=== PATIENT | male | born 1950 | race Caucasian/White ===

== ENCOUNTER → 2020-08-15 10:05 | Outpatient (CLI) | payer MEDICARE, SELFPAY ==
[2020-08-15 14:10] LABS: INR 5.51 (0.9-1.1); Prothrombin Time 52.4 seconds (9.4-11.8)
== END ==
PROVIDERS: Visit Provider Nurse Practitioner Family
DX: Z51.81 Encounter for therapeutic drug level monitoring (principal); Z79.01 Long term (current) use of anticoagulants
CPT/HCPCS: 85610

== ENCOUNTER → 2020-08-24 11:43 | Outpatient (CLI) | payer MEDICARE, SELFPAY ==
[2020-08-24 14:37] LABS: Prothrombin Time 50.5 seconds (9.4-11.8)
[2020-08-24 14:44] LABS: INR 5.29 (0.9-1.1)
== END ==
PROVIDERS: Visit Provider Nurse Practitioner Family
DX: Z51.81 Encounter for therapeutic drug level monitoring (principal); Z79.01 Long term (current) use of anticoagulants
CPT/HCPCS: 85610

== ENCOUNTER → 2020-08-31 11:39 | Outpatient (CLI) | payer MEDICARE, SELFPAY ==
[2020-08-31 17:18] LABS: INR 1.86 (0.9-1.1); Prothrombin Time 18.4 seconds (9.4-11.8)
== END ==
PROVIDERS: Visit Provider Nurse Practitioner Family
DX: Z51.81 Encounter for therapeutic drug level monitoring (principal); R79.1 Abnormal coagulation profile
CPT/HCPCS: 85610

== ENCOUNTER → 2020-09-05 11:45 | Outpatient (CLI) | payer MEDICARE, SELFPAY ==
[2020-09-05 17:26] LABS: INR 1.35 (0.9-1.1); Prothrombin Time 14.6 seconds (9.4-11.8)
== END ==
PROVIDERS: Visit Provider Nurse Practitioner Family
DX: Z51.81 Encounter for therapeutic drug level monitoring (principal); Z79.01 Long term (current) use of anticoagulants
CPT/HCPCS: 85610

== ENCOUNTER → 2020-09-11 11:48 | Outpatient (CLI) | payer MEDICARE, SELFPAY ==
[2020-09-11 14:35] LABS: INR 3.91 (0.9-1.1); Prothrombin Time 41.7 seconds (9.4-11.8)
== END ==
PROVIDERS: Visit Provider Nurse Practitioner Family
DX: R79.1 Abnormal coagulation profile (principal)
CPT/HCPCS: 85610

== ENCOUNTER → 2020-09-24 11:57 | Outpatient (CLI) | payer MEDICARE, SELFPAY ==
[2020-09-24 16:40] LABS: INR 3.63 (0.9-1.1); Prothrombin Time 38.9 seconds (9.4-11.8)
== END ==
PROVIDERS: Visit Provider Nurse Practitioner Family
DX: Z51.81 Encounter for therapeutic drug level monitoring (principal); Z79.01 Long term (current) use of anticoagulants
CPT/HCPCS: 85610

== ENCOUNTER → 2020-10-01 11:59 | Outpatient (CLI) | payer MEDICARE, SELFPAY ==
[2020-10-01 15:41] LABS: INR 4.14 (0.9-1.1)
== END ==
PROVIDERS: Visit Provider Nurse Practitioner Family
DX: Z51.81 Encounter for therapeutic drug level monitoring (principal); Z79.01 Long term (current) use of anticoagulants
CPT/HCPCS: 85610

== ENCOUNTER → 2020-10-02 11:01 | Outpatient (CLI) | payer MEDICARE, SELFPAY ==
[2020-10-02 14:44] LABS: Chloride 105 mmol/L (98-107); Potassium 5.7 mmoL/L (3.5-5.1); Sodium 137 mmol/L (136-145)
[2020-10-02 14:47] LABS: Anion Gap 11.7 mEq/L (5-15); Blood Urea Nitrogen 71 mg/dl (9-20); Carbon Dioxide 26 mmol/L (22.0-30.0); Estimated Glomerular Filt Rate 50 ml/min (>60); GFR (African American) 60 ML/MIN (>60)
[2020-10-02 14:48] LABS: Calcium 8.8 mg/dl (8.4-10.2); Glucose 162 mg/dl (74-100)
[2020-10-02 14:53] LABS: Basophils % 0.3 % (0.1-2.0); Eosinophils # 0.1 K/mm3 (0.0-0.4); Eosinophils % 1.2 % (0.1-12.0); Hematocrit 29.5 % (42.0-52.0); Hemoglobin 9.1 g/dL (14.1-18.0); Lymphocytes # 0.9 K/mm3 (0.7-4.5); Mean Corpuscular HGB Conc 30.8 g/dL (31.8-35.4); Mean Corpuscular Hemoglobin 28.6 pg (27.0-31.2); Mean Corpuscular Volume 92.8 fl (80-94); Mean Platelet Volume 9.5 fl (7.4-10.4); Monocytes # 0.6 K/mm3 (0.1-1.0); Neutrophils # 8.4 K/mm3 (1.8-7.8); Neutrophils % 83.4 % (37.0-80.0); Platelet Count 256 K/mm3 (142-424); Red Blood Count 3.18 M/mm3 (4.60-6.20); Red Cell Distribution Width 16.2 % (11.5-17.5)
[2020-10-02 14:57] LABS: NT Pro Brain Natriuretic Pep. 5720 pg/mL (0-125)
== END ==
PROVIDERS: Visit Provider Nurse Practitioner Family
DX: R06.02 Shortness of breath (principal); Z51.81 Encounter for therapeutic drug level monitoring; Z79.01 Long term (current) use of anticoagulants
CPT/HCPCS: 80048; 83880; 85025

== ENCOUNTER → 2020-10-08 14:02 | Outpatient (CLI) | payer MEDICARE, SELFPAY ==
[2020-10-08 14:37] LABS: Chloride 98 mmol/L (98-107); Potassium 4.2 mmoL/L (3.5-5.1); Sodium 140 mmol/L (136-145)
[2020-10-08 14:40] LABS: Anion Gap 10.2 mEq/L (5-15); Blood Urea Nitrogen 56 mg/dl (9-20); Calcium 8.9 mg/dl (8.4-10.2); Carbon Dioxide 36 mmol/L (22.0-30.0); Estimated Glomerular Filt Rate 60 ml/min (>60); GFR (African American) 72 ML/MIN (>60); Glucose 80 mg/dl (74-100)
[2020-10-08 14:50] LABS: NT Pro Brain Natriuretic Pep. 4540 pg/mL (0-125)
[2020-10-08 16:17] LABS: INR 1.17 (0.9-1.1); Prothrombin Time 13.6 seconds (10.1-12.5)
== END ==
PROVIDERS: Visit Provider Nurse Practitioner Family
DX: R79.1 Abnormal coagulation profile (principal); R06.00 Dyspnea, unspecified
CPT/HCPCS: 80048; 83880; 85610

== ENCOUNTER → 2020-10-15 11:36 | Outpatient (CLI) | payer MEDICARE, SELFPAY ==
[2020-10-15 15:41] LABS: Basophils # 0.1 K/mm3 (0-0.2); Basophils % 0.5 % (0.1-2.0); Eosinophils # 0.2 K/mm3 (0.0-0.4); Eosinophils % 1.4 % (0.1-12.0); Hemoglobin 9.5 g/dL (14.1-18.0); Lymphocytes # 1.5 K/mm3 (0.7-4.5); Lymphocytes % 12.8 % (10-50); Mean Corpuscular HGB Conc 31.5 g/dL (31.8-35.4); Mean Corpuscular Hemoglobin 28.8 pg (27.0-31.2); Mean Corpuscular Volume 91.5 fl (80-94); Mean Platelet Volume 9.3 fl (7.4-10.4); Monocytes # 0.8 K/mm3 (0.1-1.0); Monocytes % 6.9 % (1.7-9.3); Neutrophils # 9.3 K/mm3 (1.8-7.8); Neutrophils % 78.4 % (37.0-80.0); Platelet Count 217 K/mm3 (142-424); Red Blood Count 3.28 M/mm3 (4.60-6.20); Red Cell Distribution Width 15.9 % (11.5-17.5); White Blood Count 11.8 K/mm3 (4.8-10.8)
[2020-10-15 15:53] LABS: Chloride 99 mmol/L (98-107)
[2020-10-15 15:54] LABS: Potassium 4.3 mmoL/L (3.5-5.1); Sodium 137 mmol/L (136-145)
[2020-10-15 15:56] LABS: Blood Urea Nitrogen 53 mg/dl (9-20); Estimated Glomerular Filt Rate 50 ml/min (>60); GFR (African American) 60 ML/MIN (>60)
[2020-10-15 15:57] LABS: Anion Gap 10.3 mEq/L (5-15); Carbon Dioxide 32 mmol/L (22.0-30.0); Glucose 94 mg/dl (74-100)
[2020-10-15 16:05] LABS: NT Pro Brain Natriuretic Pep. 4740 pg/mL (0-125)
[2020-10-15 18:33] LABS: INR 1.82 (0.9-1.1); Prothrombin Time 20.5 seconds (10.1-12.5)
== END ==
PROVIDERS: Visit Provider Nurse Practitioner Family
DX: R79.1 Abnormal coagulation profile (principal); R79.0 Abnormal level of blood mineral; R06.09 Other forms of dyspnea; Z79.01 Long term (current) use of anticoagulants
CPT/HCPCS: 80048; 83880; 85025; 85610

== ENCOUNTER → 2020-10-22 11:48 | Outpatient (CLI) | payer MEDICARE, SELFPAY ==
[2020-10-22 16:03] LABS: INR 3.04 (0.9-1.1)
== END ==
PROVIDERS: Visit Provider Nurse Practitioner Family
DX: R79.1 Abnormal coagulation profile (principal)
CPT/HCPCS: 85610

== ENCOUNTER → 2020-11-05 11:43 | Outpatient (CLI) | payer MEDICARE, SELFPAY ==
[2020-11-05 14:46] LABS: Basophils # 0.1 K/mm3 (0-0.2); Basophils % 0.5 % (0.1-2.0); Eosinophils # 0.3 K/mm3 (0.0-0.4); Eosinophils % 2.8 % (0.1-12.0); Hematocrit 28.1 % (42.0-52.0); Hemoglobin 8.9 g/dL (14.1-18.0); Lymphocytes # 1.2 K/mm3 (0.7-4.5); Lymphocytes % 11.7 % (10-50); Mean Corpuscular HGB Conc 31.8 g/dL (31.8-35.4); Mean Corpuscular Hemoglobin 28.2 pg (27.0-31.2); Mean Corpuscular Volume 88.7 fl (80-94); Mean Platelet Volume 8.8 fl (7.4-10.4); Monocytes # 0.7 K/mm3 (0.1-1.0); Monocytes % 6.6 % (1.7-9.3); Neutrophils # 8.2 K/mm3 (1.8-7.8); Neutrophils % 78.4 % (37.0-80.0); Platelet Count 248 K/mm3 (142-424); Red Blood Count 3.17 M/mm3 (4.60-6.20); Red Cell Distribution Width 15.8 % (11.5-17.5); White Blood Count 10.5 K/mm3 (4.8-10.8)
[2020-11-05 14:52] LABS: Iron 37 ug/dL (49-181)
[2020-11-05 15:02] LABS: Total Iron Binding Capacity 290 ug/dL (261-462)
[2020-11-05 15:33] LABS: INR 1.92 (0.9-1.1); Prothrombin Time 21.6 seconds (10.1-12.5)
== END ==
PROVIDERS: Visit Provider Nurse Practitioner Family
DX: D50.9 Iron deficiency anemia, unspecified (principal)
CPT/HCPCS: 83540; 83550; 85025; 85610

== ENCOUNTER 2020-11-12 11:50 | Inpatient (IN) | payer MEDICARE, SELFPAY ==
[2020-11-12] VITALS (12 sets, daily range): BP systolic 90–138; BP diastolic 44–100; PULSE 69–79; RESP 17–20; TEMP 36.9; O2SAT 94–99; BMI 27.5
--- NOTE | 2020-11-12 12:04 | XR_ITS ---
PROCEDURE: XR ELBOW LT 2V CLINICAL INDICATION: FALL. C/O LEFT ELBOW PAIN COMPARISON: No exams were available for comparison FINDINGS: Two views are obtained showing no obvious fracture or dislocation. IV is present in the antecubital fossa. A separate calcific density is present at the medial epicondyle area consistent with old fracture or ununited ossification center. The lateral view there is a calcific density anterior to the distal humerus which may represent this ununited ossicle as the elbow is somewhat rotated. Other findings:None. IMPRESSION: No acute findings. Dictated by: Fredy Mccann MD 11/12/2020 13:42 Fredy Mccann MD in [facility] 11/12/2020 13:42
--- NOTE | 2020-11-12 12:04 | CT_ITS ---
PROCEDURE INFORMATION: Exam: CT Thoracic Spine Without Contrast Exam date and time: 11/12/2020 12:04 PM Age: 70 years old Clinical indication: Pain in thoracic spine; Additional info: Fall. C/O thoracic pain TECHNIQUE: Imaging protocol: Computed tomography images of the thoracic spine without contrast. Radiation optimization: All CT scans at this facility use at least one of these dose optimization techniques: automated exposure control; mA and/or kV adjustment per patient size (includes targeted exams where dose is matched to clinical indication); or iterative reconstruction. COMPARISON: No relevant prior studies available. FINDINGS: There are cardiac pacer leads. Vertebrae: Anatomic alignment. No acute fracture seen. Discs/Spinal canal/Neural foramina: [id number] thoracic degenerative disc disease. No severe central spinal canal stenosis. Other bones/joints: Prior median sternotomy. Soft tissues: Unremarkable. Lungs: The visualized lungs appear emphysematous. An area of nodular potentially parenchymal scarring in the apical right lower lobe. Left lower lobe subsegmental atelectasis. Pleural spaces: Trace right pleural effusion. Heart: There is cardiomegaly. There are coronary artery calcifications. IMPRESSION: No thoracic spine fracture seen.
[2020-11-12 12:18] LABS: Basophils # 0.1 K/mm3 (0-0.2); Basophils % 0.4 % (0.1-2.0); Eosinophils # 0.1 K/mm3 (0.0-0.4); Eosinophils % 0.8 % (0.1-12.0); Hematocrit 28.3 % (42.0-52.0); Hemoglobin 8.9 g/dL (14.1-18.0); Lymphocytes % 7.4 % (10-50); Mean Corpuscular HGB Conc 31.5 g/dL (31.8-35.4); Mean Corpuscular Hemoglobin 27.5 pg (27.0-31.2); Mean Corpuscular Volume 87.4 fl (80-94); Mean Platelet Volume 8.8 fl (7.4-10.4); Monocytes # 0.7 K/mm3 (0.1-1.0); Monocytes % 5.1 % (1.7-9.3); Neutrophils % 86.2 % (37.0-80.0); Platelet Count 266 K/mm3 (142-424); Red Blood Count 3.24 M/mm3 (4.60-6.20); Red Cell Distribution Width 15.5 % (11.5-17.5); White Blood Count 13.9 K/mm3 (4.8-10.8)
[2020-11-12 12:21] LABS: Alanine Aminotransferase 22 U/L (12-78); Albumin/Globulin Ratio 1.1 (1.1-1.8); Alkaline Phosphatase 77 U/L (38-126); Anion Gap 15.1 mEq/L (5-15); Aspartate Amino Transferase 27 U/L (17-59); Bilirubin,Total 0.6 mg/dl (0.2-1.3); Blood Urea Nitrogen 69 mg/dl (9-20); Calcium 9.3 mg/dl (8.4-10.2); Carbon Dioxide 27 mmol/L (22.0-30.0); Chloride 94 mmol/L (98-107); Creatinine Clearance Estimated 29 mL/min (50-200); Estimated Glomerular Filt Rate 23 ml/min (>60); GFR (African American) 28 ML/MIN (>60); Globulin 3.6 g/dL (1.3-3.2); Glucose 213 mg/dl (74-100); Potassium 5.1 mmoL/L (3.5-5.1); Sodium 131 mmol/L (136-145); Total Protein,Serum 7.6 g/dl (6.3-8.2)
--- NOTE | 2020-11-12 12:21 | PC.NURSE ---
PT GOING TO CT
--- NOTE | 2020-11-12 12:22 | PC.NURSE ---
pt to CT
[2020-11-12 12:25] LABS: MANUAL DIFFERENTIAL MANUAL DIFFERENTIAL (MANUAL DIFF)
[2020-11-12 12:56] LABS: Eosinophils % 1 % (0-3); Lymphocytes % 6 % (10-50); Monocytes % 4 % (2-9); Neutrophils % 89 % (42-76); Platelet Estimate Normal; RBC Morphology Normal; Total Cells Counted 100
--- NOTE | 2020-11-12 15:27 | HMH.EDFALL ---
ED Disposition Clinical Impression: UTI (urinary tract infection) Qualifiers: Urinary tract infection type: acute cystitis Hematuria presence: with hematuria Qualified Code(s): N30.01 - Acute cystitis with hematuria Disposition: Admitted As Inpatient Condition on Discharge: Fair Referrals: Provider,Referral, [Primary Care Provider] - Time of Disposition: 18:53 - Critical Care Critical Care Time: No Attestation: On 11/12/20, the high probability of a clinically significant, sudden or life threatening deterioration of the following system(s) required my full and direct attention, intervention and personal management. The time I documented below is in addition to time spent performing reported procedures but includes the following listed in this critical care notation. Medical Decision Making - Medical Records Medical records reviewed: Yes: I reviewed the patient's medical records. MR Comment: Patient is here with a complaint that he had fallen and also that he had mental status changes his is concerned he may have a urinary tract infection. We have done a CT of the T-spine and also left elbow x-ray and these were negative urine analysis did show urinary tract infection with 2+ leukocyte esterase 4+ bacteria and too numerous to count WBCs electrolytes showed renal failure with a BUN and creatinine of 69 and 2.7 and a GFR of 29 this compares with BUN of 53 and creatinine of 1.4 and GFR of 50 previously patient is on Lasix spoke to Dr. Delgado Koo and he advised that patient can be admitted we will obviously hold his Lasix and put him on IV Levaquin as well as fluids - [place] Inquiry Pt receiving controlled substance: No Vital Signs: 11/12/20 11:51 11/12/20 12:42 11/12/20 13:15 Temperature 98.4 F Temperature Source Oral Pulse Rate 70 70 Pulse Rate [Right] 79 Respiratory Rate 17 18 18 Blood Pressure 107/50 L 110/52 L Blood Pressure [Right Arm] 138/100 H Blood Pressure Mean 69 Blood Pressure Mean [Right Arm] 112 Blood Pressure Source Blood Pressure Position 02 Sat by Pulse Oximetry 97 94 L 95 Oxygen Delivery Method Room Air Oxygen Flow Rate (LPM) 11/12/20 13:32 11/12/20 14:01 11/12/20 14:31 Temperature Temperature Source Pulse Rate 70 70 69 Pulse Rate [Right] Respiratory Rate 18 18 18 Blood Pressure 113/59 L 121/61 117/56 L Blood Pressure [Right Arm] Blood Pressure Mean 77 81 76 Blood Pressure Mean [Right Arm] Blood Pressure Source Blood Pressure Position 02 Sat by Pulse Oximetry 96 98 98 Oxygen Delivery Method Oxygen Flow Rate (LPM) 11/12/20 15:01 11/12/20 15:31 11/12/20 16:01 Temperature Temperature Source Pulse Rate 70 69 70 Pulse Rate [Right] Respiratory Rate 20 Blood Pressure 131/57 L 108/84 L 126/61 Blood Pressure [Right Arm] Blood Pressure Mean Blood Pressure Mean [Right Arm] Blood Pressure Source Automatic Cuff Blood Pressure Position Sitting 02 Sat by Pulse Oximetry 98 97 99 Oxygen Delivery Method Nasal Cannula Nasal Cannula Nasal Cannula Oxygen Flow Rate (LPM) 3 3 3 11/12/20 16:32 11/12/20 17:00 Temperature Temperature Source Pulse Rate 75 72 Pulse Rate [Right] Respiratory Rate 20 Blood Pressure 90/71 L 111/66 Blood Pressure [Right Arm] Blood Pressure Mean Blood Pressure Mean [Right Arm] Blood Pressure Source Automatic Cuff Blood Pressure Position 02 Sat by Pulse Oximetry 98 98 Oxygen Delivery Method Nasal Cannula Nasal Cannula Oxygen Flow Rate (LPM) 3 3 - Lab Data Lab results reviewed: Yes: I reviewed the patient's lab results. Lab Results 11/12/20 11:58: WBC 13.9 H, RBC 3.24 L, Hgb 8.9 L, Hct 28.3 L, MCV 87.4, MCH 27.5, MCHC 31.5 L, RDW 15.5, Plt Count 266, MPV 8.8, Neut % (Auto) 86.2 H, Lymph % (Auto) 7.4 L, [place] % (Auto) 5.1, Eos % (Auto) 0.8, Baso % (Auto) 0.4, Neut # (Auto) 12.0 H, Lymph # (Auto) 1.0, [place] # (Auto) 0.7, Eos # (Auto) 0.1, Baso # (Auto) 0.1, Total Coun
[2020-11-12 16:23] LABS: Microscopic, Urine URINE MICROSCOPIC (MICROSCOPIC)
[2020-11-12 16:39] LABS: Appearance,Urine TURBID (Clear); Bilirubin,Urine Negative (Negative); Blood, Urine 1+ (Negative); Color,Urine YELLOW (Yellow); Glucose,Urine (UA) Negative (Negative); Ketones,Urine Negative (Negative); Leukocyte Esterase,Urine 2+ (Negative); Nitrate,Urine Negative (Negative); PH,Urine 5.5 (5.0-8.5); Protein,Urine 1+ (Negative); Urobilinogen,Urine 0.2 EU/dl (0.2)
[2020-11-12 16:52] LABS: WBC,Urine TNTC #/hpf (0-3)
[2020-11-12 16:53] LABS: Bacteria,Urine 4+ /lpf; Mucus,Urine 1+ /lpf
--- NOTE | 2020-11-12 16:58 | PC.NURSE ---
notified ER pt is wanting to speak with him regarding POC
--- NOTE | 2020-11-12 18:09 | PC.NURSE ---
mobile plant operators paging dr. lopez who is data acquisition technician for dr. paige
[2020-11-12 18:12] LABS: Adenovirus,PCR Not Detected (NotDetected); Bordetella Pertussis Not Detected (NotDetected); Chlamydophila Pneumoniae, PCR Not Detected (NotDetected); Coronavirus 19, PCR Not Detected (NotDetected); Coronavirus 229E Not Detected (NotDetected); Coronavirus NL63 Not Detected (NotDetected); Coronavirus OC43 Not Detected (NotDetected); Coronovirus HKU1,PCR Not Detected (NotDetected); Human Metapneumovirus Not Detected (NotDetected); Influenza A, PCR Not Detected (NotDetected); Influenza AH1, 2009 Not Detected (NotDetected); Influenza AH1, PCR Not Detected (NotDetected); Influenza AH3,PCR Not Detected (NotDetected); Influenza B, PCR Not Detected (NotDetected); Mycoplasma Pneumoniae, PCR Not Detected (NotDetected); Parainfluenza 1, PCR Not Detected (NotDetected); Parainfluenza 2, PCR Not Detected (NotDetected); Parainfluenza 3, PCR Not Detected (NotDetected); Parainfluenza 4, PCR Not Detected (NotDetected); Respiratory Syncytial Virus Not Detected (NotDetected); Rhinovirus/Enterovirus Not Detected (NotDetected)
--- NOTE | 2020-11-12 18:23 | PC.NURSE ---
pt is going to call when she has pt medication list with her. States she knows that pt is on warfarin and insulin( 3 times daily) unknown doses.
--- NOTE | 2020-11-12 18:43 | PC.NURSE ---
graphite mill operator paging dr. lopez again at this time
--- NOTE | 2020-11-12 18:43 | PC.NURSE ---
LIGIA DIEHL speaking with Dr. lopez
[2020-11-12 18:54] LABS: Lactic Acid 1.2 mmol/L (0.7-2.1)
[2020-11-12 18:57] LABS: INR 2.49 (0.9-1.1); Prothrombin Time 27.5 seconds (10.1-12.5)
--- NOTE | 2020-11-12 19:01 | PC.NURSE ---
notified warehouse general laborer of admission. states pt will probably be boarding in the ER asked house if we could get regular floor bed for pt to be moved over into for comfort
--- NOTE | 2020-11-12 19:26 | PC.NURSE ---
Pt has been admitted, there are no beds available and pt will be boarding in the ER for now.
[2020-11-13] VITALS: BP 104/56; PULSE 85; RESP 18; O2SAT 100
--- NOTE | 2020-11-13 04:45 | PC.NURSE ---
shift summary pt is alert but confused. pt was anxious frequently used call light stating hes scared and doesn't want to be alone. pt has a carlson in place with cloud dark yellow in color urine. pt denies nausea, vomiting, and diarrhea.
[2020-11-13 06:00] LABS: POC Glucose,Bedside 300 (70-110)
[2020-11-13 06:10] LABS: Basophils % 0.3 % (0.1-2.0); Eosinophils % 0.2 % (0.1-12.0); Hematocrit 26.1 % (42.0-52.0); Hemoglobin 8.1 g/dL (14.1-18.0); Lymphocytes # 0.7 K/mm3 (0.7-4.5); Mean Corpuscular HGB Conc 31.2 g/dL (31.8-35.4); Mean Corpuscular Hemoglobin 27.3 pg (27.0-31.2); Mean Corpuscular Volume 87.3 fl (80-94); Mean Platelet Volume 8.8 fl (7.4-10.4); Monocytes # 0.5 K/mm3 (0.1-1.0); Monocytes % 4.5 % (1.7-9.3); Neutrophils # 8.9 K/mm3 (1.8-7.8); Neutrophils % 87.9 % (37.0-80.0); Platelet Count 216 K/mm3 (142-424); Red Blood Count 2.99 M/mm3 (4.60-6.20); Red Cell Distribution Width 15.4 % (11.5-17.5); White Blood Count 10.1 K/mm3 (4.8-10.8)
[2020-11-13 06:12] LABS: MANUAL DIFFERENTIAL MANUAL DIFFERENTIAL (MANUAL DIFF)
[2020-11-13 06:21] LABS: Alanine Aminotransferase 16 U/L (12-78); Albumin Level 3.4 g/dl (3.5-5.0); Albumin/Globulin Ratio 1.1 (1.1-1.8); Alkaline Phosphatase 64 U/L (38-126); Anion Gap 15.1 mEq/L (5-15); Aspartate Amino Transferase 21 U/L (17-59); Bilirubin,Total 0.5 mg/dl (0.2-1.3); Blood Urea Nitrogen 72 mg/dl (9-20); Calcium 8.9 mg/dl (8.4-10.2); Carbon Dioxide 27 mmol/L (22.0-30.0); Chloride 94 mmol/L (98-107); Creatinine Clearance Estimated 34 mL/min (50-200); Estimated Glomerular Filt Rate 28 ml/min (>60); GFR (African American) 34 ML/MIN (>60); Globulin 3.2 g/dL (1.3-3.2); Glucose 262 mg/dl (74-100); Potassium 5.1 mmoL/L (3.5-5.1); Sodium 131 mmol/L (136-145); Total Protein,Serum 6.6 g/dl (6.3-8.2)
--- NOTE | 2020-11-13 06:48 | HMH.HP ---
*Admission Date: 11/12/20 *Chief complaint: Weakness and increased confusion *History of present illness: 70-year-old male with dementia presented to the emergency department with his over increased confusion and weakness at home. The patient reports this morning he had been following more frequently. Full medical history was not obtained as apparently the patient's left the ER soon after bringing him in and has not returned. Patient reports a history of congestive heart failure, COPD, diabetes. Patient was found to have acute kidney injury and urinary tract infection and was admitted for IV fluids and IV antibiotics. Overnight patient was quite restless and nursing staff had to give the patient something to calm him. [facility] History I have reviewed the patient's past medical history: Yes Medical History: Reports:: Congestive Heart Failure, Chronic Obstructive Pulmonary Disease (COPD), Dementia, Diabetes Mellitus Type 2 *Have you ever received a pneumonia vaccine?: No *Have you received a flu vaccine this season?: No Other Medical History: Reports: Anemia Other Surgeries: Yes: Other - *Social History Last grade of school completed: High school graduate Smoking Status: Former smoker Alcohol Intake: never Substance Use Type: denies use *Occupational Status:: retired, other *Travel in the last 8 weeks: None Family Hx:: Non-contributory Review of Systems - Constitutional Reports anorexia - Eyes Denies blind spots - ENT Denies abnormal hearing - *Cardiovascular Denies chest pain - *Respiratory Denies change in phlegm color, Denies chest congestion - *Gastrointestinal Denies abdominal pain, Denies bloating - *Genitourinary Denies difficulty urinating - *Musculoskeletal Reports joint pain, Reports back pain - Integumentary/Breasts Denies hair loss (Labs) Meds Home Medications Medication Instructions Recorded Confirmed Type Alfuzosin HCl [Alfuzosin HCl ER] 10 mg PO DAILY 11/12/20 11/12/20 History Ascorbic Acid 500 mg PO DAILY 11/12/20 11/12/20 History Aspirin [Aspirin 81mg chewable 81 mg PO DAILY 11/12/20 11/12/20 History tab] Budesonide/Formoterol Fumarate 2 puffs IH BID 11/12/20 11/12/20 History [Budesonide-Formoterol 160-4.5] Escitalopram Oxalate 5 mg PO DAILY 11/12/20 11/12/20 History Famotidine [Pepcid] 20 mg PO DAILY 11/12/20 11/12/20 History Ferrous Sulfate 325 mg PO BID 11/12/20 11/12/20 History Furosemide [Furosemide 40MG tAB*] 40 mg PO DAILY 11/12/20 11/12/20 History Insulin Aspart [Novolog Flexpen] 0 unit SQ TID 11/12/20 11/12/20 History Insulin Glargine,Hum.rec.anlog 44 units SQ DAILY 11/12/20 11/12/20 History [Lantus Solostar 100 Units/mL 3mL flexpen] Magnesium 250 mg PO DAILY 11/12/20 11/12/20 History Metoprolol Succinate [Metoprolol 100 mg PO DAILY 11/12/20 11/12/20 History Succinate 200mg Tablet*] Pravastatin Sodium [Pravachol 40mg 40 mg PO HS 11/12/20 11/12/20 History Tablet] Tiotropium [place] [Spiriva 2 cap IH DAILY 11/12/20 11/12/20 History 18mcg/puff inhaler] Warfarin Sodium 3 mg PO DAILY 11/12/20 11/12/20 History lisinopriL [Lisinopril] 40 mg PO DAILY 11/12/20 11/12/20 History metOLazone [Metolazone 5mg Tab] 5 mg PO DAILY 11/12/20 11/12/20 History Allergies Allergy/AdvReac Type Severity Reaction Status Date / Time No Known Allergies Allergy Unverified 06/30/17 14:56 Exam Vital signs and Labs for Last 24 Hours: Temp Pulse Resp BP Pulse Ox 98.4 F 85 18 104/56 L 100 11/12/20 22:28 11/13/20 00:00 11/13/20 00:00 11/13/20 00:00 11/13/20 00:00 Laboratory Results - last 24 hr 11/12/20 11:58: WBC 13.9 H, RBC 3.24 L, Hgb 8.9 L, Hct 28.3 L, MCV 87.4, MCH 27.5, MCHC 31.5 L, RDW 15.5, Plt Count 266, MPV 8.8, Neut % (Auto) 86.2 H, Lymph % (Auto) 7.4 L, [place] % (Auto) 5.1, Eos % (Auto) 0.8, Baso % (Auto) 0.4, Neut # (Auto) 12.0 H, Lymph # (Auto) 1.0, [place] # (Auto) 0.7, Eos # (Auto) 0.1, Baso # (Auto) 0.1, Total Counted 100, N
--- NOTE | 2020-11-13 07:39 | P.CONPHA_ITS ---
[facility] VTE Monitoring - Patient Demographics Admission date: 11/12/20 Report Date: 11/13/20 Time: 07:39 Allergies/Adverse Reactions: Patient Allergies No Known Allergies Allergy (Unverified 06/30/17 14:56) Height: 1.73 m Weight: 82.024 kg Patient Problems: Current Active Problems UTI (urinary tract infection) (Acute) Acute kidney injury (nontraumatic) (Acute) Diabetes mellitus type 2 in nonobese (Acute) Chronic obstructive pulmonary disease, unspecified (Acute) Congestive heart failure, unspecified (Acute) Dementia, unspecified, with behavioral disturbance (Acute) Anemia of chronic disease (Acute) - VTE Risk Labs: VTE Related Lab Results Hgb 8.1 g/dL (14.1-18.0) L 11/13/20 05:25 Hct 26.1 % (42.0-52.0) L 11/13/20 05:25 Plt Count 216 K/mm3 (142-424) 11/13/20 05:25 PT 27.5 seconds (10.1-12.5) H 11/12/20 11:58 INR 2.49 (0.9-1.1) H 11/12/20 11:58 BUN 72 mg/dl (9-20) H 11/13/20 05:25 Creatinine 2.30 mg/dl (0.66-1.25) H 11/13/20 05:25 Estimated Creat Clear 34 mL/min (50-200) 11/13/20 05:25 - Prophylaxis VTE Prophylaxis Ordered?: Yes Types of VTE Prophylaxis: TEDS Knee High, Pharmacological Location of Applied Device: Bilateral Lower Extremeties Pharmacologic Type: Warfarin
[2020-11-13 08:00] VITALS: BP 134/79; PULSE 103; RESP 16; TEMP 36.4; O2SAT 98
[2020-11-13 09:16] LABS: Lymphocytes % 7 % (10-50); Monocytes % 2 % (2-9); Neutrophils % 90 % (42-76); RBC Morphology Normal; Total Cells Counted 100
[2020-11-13 09:17] LABS: Platelet Estimate Normal
[2020-11-13 10:07] LABS: POC Glucose,Bedside 304 (70-110)
--- NOTE | 2020-11-13 10:18 | HMH.PTEV ---
Physical Therapy Evaluation Rehab PT IP Evaluation Start: 11/13/20 06:46 Freq: ONCE Status: Active Protocol: Document 11/13/20 10:12 JUAN C (Rec: 11/13/20 10:18 JUAN C [id number]) Subjective/History History History 70-year-old male with dementia presented to the emergency department with his over increased confusion and weakness at home. The patient reports this morning he had been following more frequently . Full medical history was not obtained as apparently the patient's left the ER soon after bringing him in and has not returned. Patient reports a history of congestive heart failure, COPD , diabetes. Patient was found to have acute kidney injury and urinary tract infection and was admitted for IV fluids and IV antibiotics. Overnight patient was quite restless and nursing staff had to give the patient something to calm him. Taken from H&P Subjective Subjective pt c/o his back itching - pt A&O x 3 Rehab PT IP Eval Objective Appearance Patient Behavior Cooperative Patient Orientation Person,Place,Time Difficulty following instructions none Speech Pattern Clear,Appropriate Ambulation Patient Able to Ambulate Yes Ambulation Observation IP General Gait Pattern Observation Ataxic Gait,Shuffling Step Ambulation Distance (feet) 2 Ambulation Assistive Device None Ambulation Ability Minimal x 2 (25% assist) Balance Ability to Arise Able, uses arms to help Sitting Balance Steady, safe Standing Balance Steady, wide stance Dynamic Sitting Balance Ability Fair Dynamic Standing Balance Ability Poor Transfers Bed Transfer Ability Moderate x 2 (50% assist) Sit to Stand Bed Transfer Ability Contact Guard/Hand Hold, Minimal x 2 (25% assist) ROM LUE PT ROM Status ABN MMT LUE PT MMT ABN Abnormal MMT Grade 3-/5 Rehab PT IP prob,goals,plan Problems Date of Evaluation: 11/13/20 PT IP Problems Bed Mobility,Transfers,Gait,
--- NOTE | 2020-11-13 10:31 | PC.NURSE ---
pt is A&Ox4 this morning. at bedside and states pt is not diagnosed with dementia but get very confused and yells at night, but is back to being oriented during the day.
--- NOTE | 2020-11-13 10:58 | HMH.OTEV ---
OT Inpatient Evaluation Rehab OT IP Evaluation Start: 11/13/20 09:45 Freq: ONCE Status: Complete Protocol: Document 11/13/20 10:52 [facility] (Rec: 11/13/20 10:57 [facility] [id number]) Rehab OT IP Assessment Subjective History Pt oriented x 2. Pt agreeable to engage in therapy evaluation. Pt was admitted via ED on 11/12/20 due to mental status change and fall at home. Pt has a past medical history of CHF, COPD, Dementia , and DM type 2. Pt's present during therapy evaluation. According to both patient and , pt requires assistance with ADLS. He requires help with dressing and bathing. He is able to eat independently after set up of food. Pt is dependent upon to complete all IADL 's at home such as cleaning, cooking, laundry, etc. reports he is able to transfer minimal distances with rolling walker when he is not weak/sick. Pt was being seen by home health and completed therapy ~2 weeks ago. According to he has progressively become weaker. Subjective I feel so bad. Objective Patient Orientation Person,Birthday Upper Extremity Gross ROM WFL Shoulder ROM Limitations Muscle Weakness Elbow ROM Limitations Muscle Weakness Wrist Limitations of Range of Motion Muscle Weakness Bed Mobility bed mobility-scooting,bed mobility - supine/sit,bed mobility - rolling Assist Level Minimal x 1 (25% assist) Transfer Training Sit/Stand Transfer Assist Level Minimal x 2 (25% assist) Rehab OT IP prob,goals,plan Problems Date of Evaluation: 11/13/20 OT IP Problems Bed Mobility,Transfers,Gait, Balance,Self care,Safety Rehab Potential Rehab Potential Good Equipment Needs Assistive Devices Rolling / Wheeled Walker Plan OT intervention Plan Bed Mobility,Transfers,Gait, Balance,Self care,Safety,
[2020-11-13 12:22] LABS: POC Glucose,Bedside 276 (70-110)
[2020-11-13 13:00] VITALS: BP 109/57; PULSE 71; RESP 16; TEMP 36.4; O2SAT 97
[2020-11-13 13:30] VITALS: BP 109/57; PULSE 71; RESP 16; TEMP 36.4; O2SAT 97
--- NOTE | 2020-11-13 14:27 | SW/DCPLANNER ---
RECEIVED REFERRAL FOR THIS PATIENT FOR DISCHARGE PLANNING: I SPOKE WITH AND PATIENT, PATIENT WAS SLEEPY AND ANSWERED MOST QUESTIONS, SHE REQUESTED INFORMATION TO BE SENT TO [facility] SINCE THEY RESIDE IN [place]... I DID MAKE CONTACT AND THEY DO HAVE BEDS AVAILABLE, HIS INSURANCE REQUIRES AUTHORIZATION AND WILL BE SENT IN FOR REVIEW.. IF ACCEPTED HE MAY BE READY FOR DISPOSITION SOON TMRW OR THURS.. WILL NOTIFY IF APPROVED...
--- NOTE | 2020-11-13 15:33 | HMH.PHAINT ---
MEDICATION RECONCILIATION COMPLETED ON PATIENT USING LIST FROM [facility] [place], AND [facility]. -BRYCE COLLADOD
[2020-11-13 16:59] LABS: POC Glucose,Bedside 174 (70-110)
--- NOTE | 2020-11-13 17:21 | PC.NURSE ---
NOTIFIED ABOUT PT WHEEZING NOW AND HE ORDERED TO STOP IVF. ORDER FAXED TO PHARMACY.
[2020-11-13 20:00] VITALS: BP 100/53; PULSE 70; RESP 18; TEMP 36.9; O2SAT 99
[2020-11-13 20:26] LABS: POC Glucose,Bedside 95 (70-110)
[2020-11-14 04:00] VITALS: BP 118/63; PULSE 70; RESP 20; TEMP 36.4; O2SAT 99
--- NOTE | 2020-11-14 04:26 | PC.NURSE ---
pt has yelled out most of night. slept intermittently. 3LNC. pt has been very confused and restless. iv patent. vss. call light in reach. bed alarm is set. will continue to monitor
[2020-11-14 06:30] LABS: POC Glucose,Bedside 82 (70-110)
--- NOTE | 2020-11-14 07:16 | HMH.ACPN2 ---
Internal Medicine - PN: Subj *Date: 11/14/20 *Time: 07:16 Interval history: Patient required reinsertion of Mullen catheter this morning with 450 mL of urine output. Patient reports he does not feel well but cannot be more specific. He he admits he does not like the evenings and nighttime as he is uncomfortable and anxious in the hospital. Patient is continued to yell out most of the night with no specific complaints. Nursing staff repeatedly tries to reassure the patient that he is safe. He denies pain or shortness of breath Exam Vital signs and Labs for Last 24 Hours: Temp Pulse Resp BP Pulse Ox 97.6 F 70 20 118/63 99 11/14/20 04:00 11/14/20 04:00 11/14/20 04:00 11/14/20 04:00 11/14/20 04:00 Laboratory Results - last 24 hr 11/12/20 16:15: Urine Color Yellow, Urine Appearance Turbid, Urine pH 5.5, Ur Specific [place] 1.020, Urine Protein 1+, Urine Glucose (UA) Negative, Urine Ketones Negative, Urine Blood 1+, Urine Nitrate Negative, Urine Bilirubin Negative, Urine Urobilinogen 0.2, Ur Leukocyte Esterase 2+ A, Urine RBC 10-20, Urine WBC Tntc, Ur Squamous Epith Cells 5-10, Urine Bacteria 4+, Urine Mucus 1+ 11/13/20 05:25: Total Counted 100, Neutrophils % (Manual) 90 H, Band Neutrophils % 1.0, Lymphocytes % (Manual) 7 L, Monocytes % (Manual) 2, Platelet Estimate Normal, RBC Morphology Normal 11/13/20 09:43: POC Glucose 304 H* 11/13/20 12:11: POC Glucose 276 H 11/13/20 16:51: POC Glucose 174 H 11/13/20 20:12: POC Glucose 95 11/14/20 06:00: POC Glucose 82 I & O for Last 24 hours: Intake & Output 11/11/20 11/12/20 11/13/20 11/14/20 11:59 11:59 11:59 11:59 Intake Total 2680 / 2680 1560 / 1560 Output Total 600 / 600 650 / 650 Balance 2080 / 2080 910 / 910 Weight 180 lb 13.313 oz 198 lb 5 oz Microbiology Reports for the Last 24 Hours: Microbiology 11/12/20 18:24 Blood Blood Culture - Preliminary 11/12/20 11:58 Blood Blood Culture - Preliminary 11/12/20 16:15 Urine,Catheterized Urine Culture - Preliminary Gram Negative Rods - Constitutional no acute distress - *Routine Respiratory Exam Present: crackles - *Routine Cardiovascular Exam Present: RRR - *Routine Abdominal Exam Present: soft, normoactive bowel sounds. Absent: tenderness - *Routine Extremities Exam Absent: cyanosis, clubbing, edema Assessment and Plan (1) Acute kidney injury (nontraumatic) Status: Acute Category: Medical Code(s): N17.9 - Acute kidney failure, unspecified (2) Diabetes mellitus type 2 in nonobese Status: Acute Category: Medical Code(s): E11.9 - Type 2 diabetes mellitus without complications (3) Chronic obstructive pulmonary disease, unspecified Status: Acute Category: Medical Code(s): J44.9 - Chronic obstructive pulmonary disease, unspecified (4) Congestive heart failure, unspecified Status: Acute Category: Medical Code(s): I50.9 - Heart failure, unspecified (5) Dementia, unspecified, with behavioral disturbance Status: Acute Category: Medical Code(s): F03.91 - Unspecified dementia with behavioral disturbance (6) UTI (urinary tract infection) Status: Acute Qualifiers: Urinary tract infection type: acute cystitis Hematuria presence: with hematuria Qualified Code(s): N30.01 - Acute cystitis with hematuria Category: Medical Code(s): N39.0 - Urinary tract infection, site not specified (7) Anemia of chronic disease Status: Acute Category: Medical Code(s): D63.8 - Anemia in other chronic diseases classified elsewhere (8) Gram-negative bacteremia Status: Acute Category: Medical Code(s): R78.81 - Bacteremia - Assessment and plan all Dx Assessment and Plan for all problems:: 1. Continue IV Levaquin dosed every 48 hours for patient's gram-negative urinary tract infection and gram-negative bacteremia. Antibiotic adjustments may be made based on culture results. Patient will need 7 days total
[2020-11-14 07:42] LABS: Basophils % 0.3 % (0.1-2.0); Eosinophils # 0.1 K/mm3 (0.0-0.4); Eosinophils % 0.8 % (0.1-12.0); Hematocrit 27.6 % (42.0-52.0); Hemoglobin 8.8 g/dL (14.1-18.0); Lymphocytes # 1.2 K/mm3 (0.7-4.5); Lymphocytes % 10.9 % (10-50); Mean Corpuscular HGB Conc 31.9 g/dL (31.8-35.4); Mean Corpuscular Hemoglobin 27.6 pg (27.0-31.2); Mean Corpuscular Volume 86.6 fl (80-94); Mean Platelet Volume 9.3 fl (7.4-10.4); Monocytes # 0.7 K/mm3 (0.1-1.0); Monocytes % 6.7 % (1.7-9.3); Neutrophils # 8.9 K/mm3 (1.8-7.8); Neutrophils % 81.3 % (37.0-80.0); Platelet Count 230 K/mm3 (142-424); Red Blood Count 3.18 M/mm3 (4.60-6.20); Red Cell Distribution Width 15.5 % (11.5-17.5)
[2020-11-14 07:47] LABS: Alanine Aminotransferase 21 U/L (12-78); Albumin Level 3.8 g/dl (3.5-5.0); Albumin/Globulin Ratio 1.1 (1.1-1.8); Alkaline Phosphatase 72 U/L (38-126); Anion Gap 13.4 mEq/L (5-15); Aspartate Amino Transferase 32 U/L (17-59); Bilirubin,Total 0.6 mg/dl (0.2-1.3); Calcium 9.5 mg/dl (8.4-10.2); Carbon Dioxide 27 mmol/L (22.0-30.0); Chloride 97 mmol/L (98-107); Creatinine Clearance Estimated 41 mL/min (50-200); Estimated Glomerular Filt Rate 31 ml/min (>60); GFR (African American) 38 ML/MIN (>60); Globulin 3.4 g/dL (1.3-3.2); Glucose 62 mg/dl (74-100); Potassium 4.4 mmoL/L (3.5-5.1); Sodium 133 mmol/L (136-145); Total Protein,Serum 7.2 g/dl (6.3-8.2)
[2020-11-14 08:00] VITALS: BP 122/68; PULSE 74; RESP 20; TEMP 36.8; O2SAT 99
[2020-11-14 08:09] LABS: Blood Urea Nitrogen 78 mg/dl (9-20)
[2020-11-14 08:15] LABS: POC Glucose,Bedside 115 (70-110)
[2020-11-14 08:24] LABS: Prothrombin Time 28.7 seconds (10.1-12.5)
[2020-11-14 08:25] LABS: INR 2.61 (0.9-1.1)
[2020-11-14 11:45] LABS: POC Glucose,Bedside 89 (70-110)
[2020-11-14 16:00] VITALS: BP 118/74; PULSE 73; RESP 18; TEMP 36.8; O2SAT 100
[2020-11-14 17:58] LABS: POC Glucose,Bedside 121 (70-110)
--- NOTE | 2020-11-14 18:05 | PC.NURSE ---
Pt was extremely anxious and kept yelling out for the first couple of hours this shift. When pt's arrived, pt did calm down and then slept most of the shift. Pt did require assistance from his to eat his meals this shift. Mullen cath remains in place w/ straw colored and purulent urine draining per gravity. Pt has required no insulin this shift, long-acting insulin was held this AM d/t low FSBS this morning. Lunchtime FSBS was 89. No other acute changes or complaints at this time.
[2020-11-14 20:00] VITALS: BP 127/70; PULSE 71; RESP 19; TEMP 36.7; O2SAT 100
[2020-11-14 20:08] VITALS: O2SAT 100
--- NOTE | 2020-11-14 20:09 | PC.NURSE ---
RA SATS 82%. RETURN PT TO 3L N/C
[2020-11-14 21:00] VITALS: O2SAT 100
[2020-11-14 21:41] LABS: POC Glucose,Bedside 116 (70-110)
--- NOTE | 2020-11-14 22:45 | PC.NURSE ---
He is able to answer all questions correctly but continues to yell out despite being shown how to use the call light. He can press the buttons better on the call light with his left hand. He is aggravated that staff cannot find [place] on the television. He requested to call his . Staff helped him to call his with his cell phone. He was begging her to come visit him and reported that staff was not helping him. He denies pain. Glucose was 116 at bedtime. F/c is patent with yellow, clear urine. He continues on 3LPM n/c. Safety is set.
[2020-11-15 03:37] VITALS: BP 145/71; PULSE 70; RESP 18; TEMP 37; O2SAT 100
[2020-11-15 04:44] VITALS: BMI 29.8
[2020-11-15 05:12] LABS: POC Glucose,Bedside 102 (70-110)
[2020-11-15 08:00] VITALS: BP 125/66; PULSE 70; RESP 18; TEMP 36.6; O2SAT 99
[2020-11-15 08:10] VITALS: PULSE 73; O2SAT 99
--- NOTE | 2020-11-15 08:16 | HMH.ACPN2 ---
Internal Medicine - PN: Subj *Date: 11/15/20 *Time: 08:16 Interval history: Patient has been stable over the last 24 hours. He continues to yell out for staff with minor complaints such as what is on the television. Initially during morning interview patient denies any pain or shortness of breath but then later states he is miserable . His misery this stems from the belief that no family has been to visit him and he experiences some upset stomach. When further questioned regarding his upset stomach . Patient cannot describe significant nausea, abdominal pain or change in bowel habits. Exam Vital signs and Labs for Last 24 Hours: Temp Pulse Resp BP Pulse Ox 97.9 F 70 18 125/66 99 11/15/20 08:00 11/15/20 08:00 11/15/20 08:00 11/15/20 08:00 11/15/20 08:00 Laboratory Results - last 24 hr 11/14/20 07:26: PT 28.7 H, INR 2.61 H 11/14/20 11:35: POC Glucose 89 11/14/20 17:08: POC Glucose 121 H 11/14/20 20:27: POC Glucose 116 H 11/15/20 03:47: POC Glucose 102 I & O for Last 24 hours: Intake & Output 11/12/20 11/13/20 11/14/20 11/15/20 11:59 11:59 11:59 11:59 Intake Total 2680 / 2680 2040 / 2040 610 / 610 Output Total 600 / 600 650 / 650 1100 / 1100 Balance 2080 / 2080 1390 / 1390 -490 / -490 Weight 180 lb 13.313 oz 198 lb 6.656 oz 197 lb 1 oz Microbiology Reports for the Last 24 Hours: Microbiology 11/12/20 18:24 Blood Blood Culture - Preliminary Gram Negative Rods 11/12/20 11:58 Blood Blood Culture - Preliminary Gram Negative Rods 11/12/20 16:15 Urine,Catheterized Urine Culture - Final Escherichia coli Narrative: Patient looks comfortable. He is rather emotionally labile and on the verge of tears at times. Lungs remain clear. Heart has a regular rate and rhythm. Abdomen is soft and nontender. Assessment and Plan (1) E coli bacteremia Status: Suspected Category: Medical Code(s): R78.81 - Bacteremia; B96.20 - Unspecified Escherichia coli [E. coli] as the cause of diseases classified elsewhere (2) Acute kidney injury (nontraumatic) Status: Acute Category: Medical Code(s): N17.9 - Acute kidney failure, unspecified (3) Diabetes mellitus type 2 in nonobese Status: Acute Category: Medical Code(s): E11.9 - Type 2 diabetes mellitus without complications (4) Chronic obstructive pulmonary disease, unspecified Status: Acute Category: Medical Code(s): J44.9 - Chronic obstructive pulmonary disease, unspecified (5) Congestive heart failure, unspecified Status: Acute Category: Medical Code(s): I50.9 - Heart failure, unspecified (6) Dementia, unspecified, with behavioral disturbance Status: Acute Category: Medical Code(s): F03.91 - Unspecified dementia with behavioral disturbance (7) UTI (urinary tract infection) Status: Acute Qualifiers: Urinary tract infection type: acute cystitis Hematuria presence: with hematuria Qualified Code(s): N30.01 - Acute cystitis with hematuria Category: Medical Code(s): N39.0 - Urinary tract infection, site not specified (8) Anemia of chronic disease Status: Acute Category: Medical Code(s): D63.8 - Anemia in other chronic diseases classified elsewhere (9) E. coli UTI Status: Acute Category: Medical Code(s): N39.0 - Urinary tract infection, site not specified; B96.20 - Unspecified Escherichia coli [E. coli] as the cause of diseases classified elsewhere (10) Pseudobulbar affect Status: Acute Category: Medical Code(s): F48.2 - Pseudobulbar affect - Assessment and plan all Dx Assessment and Plan for all problems:: 1. Patient will be started on Rocephin 2 g IV daily due to his gram-negative bacteremia in anticipation that this will be E. coli with same sensitivities of his urinary tract infection. PICC line will be ordered. 2. Continue to hold diuretics while awaiting improvement in r
--- NOTE | 2020-11-15 08:20 | HMH.DCSUM ---
General - General Admission date:: 11/12/20 Discharge date: 11/15/20 HPI HPI: 70-year-old male with dementia presented to the emergency department with his over increased confusion and weakness at home. The patient reports this morning he had been following more frequently. Full medical history was not obtained as apparently the patient's left the ER soon after bringing him in and has not returned. Patient reports a history of congestive heart failure, COPD, diabetes. Patient was found to have acute kidney injury and urinary tract infection and was admitted for IV fluids and IV antibiotics. Overnight patient was quite restless and nursing staff had to give the patient something to calm him. Hospital Course Hospital Course: Patient was admitted for altered mental status and urinary tract infection. Patient was initially started on Levaquin for his UTI. After 48 hours of hospitalization patient's urine culture grew E. coli that was resistant to dee quinolones and patient was transitioned to Rocephin. Blood cultures were also growing gram-negative rods and his Rocephin was increased to 2 g IV daily. Patient will need at least 7 days of IV Rocephin 2 g daily for treatment of gram-negative (E. coli) bacteremia and UTI. Patient remained afebrile during the entirety of his hospitalization. Patient's infection did exacerbate his dementia. Patient displayed poor memory during hospitalization often forgetting simple instructions given to him by nurses and forgetting that family had visited him throughout the day. Nighttime's were the most difficult for the patient increased disruptive behavior such as yelling from his room despite teaching on how to use his call button. Patient did admit he was very uncomfortable at nights and became anxious. confirmed this behavior occurs at home as well. Patient be started on a low-dose of Seroquel in the evenings. Patient displayed emotional lability as well raising question pseudobulbar affect and patient will be started on Nuedexta at discharge Patient had acute kidney injury identified on admission. Patient is on multiple diuretics in addition to ROMERO inhibitor's due to his congestive heart failure. He was initially rehydrated but when should he showed signs of fluid overload IV fluids were discontinued. Creatinine gradually came down. At discharge patient's ROMERO inhibitor was restarted Patient's medical history was significant for congestive heart failure, COPD and diabetes mellitus, and anemia of chronic disease. These conditions remained stable during hospitalization Objective Vital signs: Temp Pulse Resp BP Pulse Ox 97.9 F 70 18 125/66 99 11/15/20 08:00 11/15/20 08:00 11/15/20 08:00 11/15/20 08:00 11/15/20 08:00 no acute distress - *Routine Respiratory Exam Present: CTA bilaterally - *Routine Cardiovascular Exam Present: RRR - *Routine Abdominal Exam Present: soft, normoactive bowel sounds. Absent: tenderness - *Routine Extremities Exam Absent: cyanosis, clubbing, edema Results Labs on day of discharge: Labs from last 24 hours 11/15/20 11/14/20 11/14/20 03:47 20:27 17:08 PT INR POC Glucose 102 116 H 121 H 11/14/20 11/14/20 11:35 07:26 PT 28.7 H INR 2.61 H POC Glucose 89 Preliminary micro results at discharge 11/12/20 18:24 Blood Culture - Preliminary Blood Gram Negative Rods 11/12/20 11:58 Blood Culture - Preliminary Blood Gram Negative Rods DS: Diagnosis - Discharge Diagnosis (1) E coli bacteremia Status: Suspected (2) Acute kidney injury (nontraumatic) Status: Acute (3) Diabetes mellitus type 2 in nonobese Status: Acute (4) Chronic obstructive pulmonary disease, unspecified Status: Acute (5) Congestive heart failure, unspecified Status: Acute (6) Dementia, unspecified, with behavioral disturbance Status: Acute (7) UTI (urinary tract in
[2020-11-15 08:29] LABS: Basophils % 0.3 % (0.1-2.0); Eosinophils # 0.1 K/mm3 (0.0-0.4); Eosinophils % 1.5 % (0.1-12.0); Hemoglobin 8.5 g/dL (14.1-18.0); Lymphocytes # 1.2 K/mm3 (0.7-4.5); Lymphocytes % 12.3 % (10-50); Mean Corpuscular HGB Conc 32.6 g/dL (31.8-35.4); Mean Corpuscular Hemoglobin 28.1 pg (27.0-31.2); Mean Corpuscular Volume 86.1 fl (80-94); Mean Platelet Volume 8.7 fl (7.4-10.4); Monocytes # 0.6 K/mm3 (0.1-1.0); Monocytes % 6.6 % (1.7-9.3); Neutrophils # 7.4 K/mm3 (1.8-7.8); Neutrophils % 79.3 % (37.0-80.0); Platelet Count 253 K/mm3 (142-424); Red Blood Count 3.01 M/mm3 (4.60-6.20); Red Cell Distribution Width 15.6 % (11.5-17.5); White Blood Count 9.4 K/mm3 (4.8-10.8)
[2020-11-15 08:33] LABS: Anion Gap 9.5 mEq/L (5-15); Calcium 9.5 mg/dl (8.4-10.2); Carbon Dioxide 29 mmol/L (22.0-30.0); Chloride 99 mmol/L (98-107); Creatinine Clearance Estimated 54 mL/min (50-200); Estimated Glomerular Filt Rate 43 ml/min (>60); GFR (African American) 52 ML/MIN (>60); Glucose 86 mg/dl (74-100); Potassium 4.5 mmoL/L (3.5-5.1); Sodium 133 mmol/L (136-145)
--- NOTE | 2020-11-15 08:33 | XR_ITS ---
PROCEDURE: XR CHEST PORTABLE PICC PLAC CLINICAL HISTORY: Confirm PICC line placement COMPARISON: CR CXR1 CHEST-PORTABLE from 03/09/2015 CR CXR1 CHEST-PORTABLE from 05/14/2015 CR CXR CHEST(2 VIEWS-NOT PORTABLE) from 09/30/[address] THORACIC SPINE WO CON from 11/12/2020 FINDINGS: Right upper extremity PICC line has been inserted. The tip overlies the region of the proximal SVC/distal brachiocephalic vein There is cardiomegaly. Prior CABG. There is fracture of the superior most median sternotomy wire. Biventricular and right atrial pacer wires are present. Increased density is present in the lung bases consistent with atelectasis and/or infiltrate.. An area of increased density overlies the left 5th rib anteriorly. This could be due to an area of infiltrate or developing nodule. IMPRESSION: Right upper extremity PICC line tip is in the distal brachiocephalic/proximal SVC region. Cardiomegaly with increased markings in the lung bases consistent with atelectasis and/or infiltrate with nodular opacity in the left mid to lower lung zone which could be to an area of infiltrate or developing nodule Dictated by: Fredy Mccann MD 11/15/2020 14:51 Fredy Mccann MD in [facility] 11/15/2020 14:51
[2020-11-15 08:38] LABS: Blood Urea Nitrogen 76 mg/dl (9-20)
[2020-11-15 08:57] LABS: INR 2.89 (0.9-1.1); Prothrombin Time 31.5 seconds (10.1-12.5)
[2020-11-15 11:24] VITALS: BP 138/67; PULSE 73; RESP 18; TEMP 36.6; O2SAT 100
[2020-11-15 11:37] LABS: POC Glucose,Bedside 110 (70-110)
--- NOTE | 2020-11-15 14:29 | PC.NURSE ---
pt is alert and oriented times 4 but appears to have short term memory issues. pt easily forgets directions such as using the call light, forgets staff have been in the room to help him. pt states that the memory issues have been present since he had COVID in july.
--- NOTE | 2020-11-15 15:25 | PC.NURSE ---
report called to [facility] at 1515.
--- NOTE | 2020-11-15 15:39 | PC.NURSE ---
per dr lopez leave urinary cath in place
== END 2020-11-15 15:39 | DRG 683 ==
LOC: ER 18:53 → 2ND 19:08 → ICU 11-13 06:38 → 2ND 11-14 16:42
PROVIDERS: Emergency Medicine; Admitting Provider Family Medicine; Emergency Provider Emergency Medicine; Visit Provider Family Medicine
DX: N17.9 Acute kidney failure, unspecified (principal); N39.0 Urinary tract infection, site not specified; F03.91 Unspecified dementia, unspecified severity, with behavioral disturbance; R78.81 Bacteremia; Z16.23 Resistance to quinolones and fluoroquinolones; I50.9 Heart failure, unspecified; J44.9 Chronic obstructive pulmonary disease, unspecified; Z79.01 Long term (current) use of anticoagulants; E11.9 Type 2 diabetes mellitus without complications; Z79.4 Long term (current) use of insulin; F03.90 Unspecified dementia, unspecified severity, without behavioral disturbance, psychotic disturbance, mood disturbance, and anxiety; W19.XXXA Unspecified fall, initial encounter; D63.8 Anemia in other chronic diseases classified elsewhere; I11.0 Hypertensive heart disease with heart failure; B96.20 Unspecified Escherichia coli [E. coli] as the cause of diseases classified elsewhere; R31.9 Hematuria, unspecified; F48.2 Pseudobulbar affect
CPT/HCPCS: 36569; 36415; 71045; 72128; 73070; 80048; 80053; 81001; 82962; 83605; 85007; 85025; 85610; 87040; 87077; 87086; 87088; 87186; 87581; 87633; 87798; 96365; 96375; 97110; 97116; 97162; 97166; 97530; 99284; C1751; J1956; J2405

== ENCOUNTER → 2020-11-19 07:13 | Outpatient (CLI) | payer MEDICARE, SELFPAY ==
[2020-11-19 15:51] LABS: INR 2.15 (0.9-1.1)
== END ==
PROVIDERS: Visit Provider Internal Medicine Adolescent Medicine
DX: Z51.81 Encounter for therapeutic drug level monitoring (principal); Z79.01 Long term (current) use of anticoagulants
CPT/HCPCS: 36415; 85610

== ENCOUNTER → 2020-11-20 08:36 | Outpatient (CLI) | payer MEDICARE, SELFPAY ==
[2020-11-20 14:07] LABS: Basophils # 0.1 K/mm3 (0-0.2); Basophils % 0.6 % (0.1-2.0); Eosinophils # 0.4 K/mm3 (0.0-0.4); Eosinophils % 3.8 % (0.1-12.0); Hematocrit 28.3 % (42.0-52.0); Hemoglobin 8.7 g/dL (14.1-18.0); Lymphocytes # 1.2 K/mm3 (0.7-4.5); Mean Corpuscular HGB Conc 30.6 g/dL (31.8-35.4); Mean Corpuscular Volume 88.3 fl (80-94); Mean Platelet Volume 8.6 fl (7.4-10.4); Monocytes # 0.5 K/mm3 (0.1-1.0); Monocytes % 4.5 % (1.7-9.3); Neutrophils # 8.7 K/mm3 (1.8-7.8); Neutrophils % 80.1 % (37.0-80.0); Platelet Count 312 K/mm3 (142-424); Red Blood Count 3.21 M/mm3 (4.60-6.20); Red Cell Distribution Width 15.8 % (11.5-17.5); White Blood Count 10.9 K/mm3 (4.8-10.8)
[2020-11-20 14:24] LABS: Alanine Aminotransferase 18 U/L (12-78); Albumin Level 2.9 g/dl (3.5-5.0); Alkaline Phosphatase 84 U/L (38-126); Anion Gap 11.7 mEq/L (5-15); Aspartate Amino Transferase 22 U/L (17-59); Bilirubin,Total 0.2 mg/dl (0.2-1.3); Blood Urea Nitrogen 67 mg/dl (9-20); Calcium 8.8 mg/dl (8.4-10.2); Carbon Dioxide 26 mmol/L (22.0-30.0); Chloride 103 mmol/L (98-107); Chol/HDL Ratio 4.2 (1-3.5); Cholesterol 84 mg/dl (140-200); Estimated Glomerular Filt Rate 46 ml/min (>60); GFR (African American) 56 ML/MIN (>60); Globulin 2.9 g/dL (1.3-3.2); Glucose 249 mg/dl (74-100); HDL Cholesterol 20 mg/dl (40-60); Magnesium 1.9 mg/dl (1.6-2.3); Potassium 4.7 mmoL/L (3.5-5.1); Sodium 136 mmol/L (136-145); Total Protein,Serum 5.8 g/dl (6.3-8.2); Triglycerides 110 mg/dl (30-150); VLDL Cholesterol 22 mg/dL (0-40)
[2020-11-20 14:35] LABS: Direct LDL Cholesterol 41.89 mg/dL (100-129)
[2020-11-20 15:01] LABS: Hemoglobin A1C 7.3 % (4.0-6.0)
== END ==
PROVIDERS: Visit Provider Internal Medicine Adolescent Medicine
DX: E11.65 Type 2 diabetes mellitus with hyperglycemia (principal); E78.5 Hyperlipidemia, unspecified; E55.9 Vitamin D deficiency, unspecified; Z79.4 Long term (current) use of insulin
CPT/HCPCS: 36415; 80053; 80061; 83036; 83735; 85025

== ENCOUNTER → 2020-12-18 08:29 | Outpatient (CLI) | payer MEDICARE, SELFPAY ==
[2020-12-18 10:47] LABS: Basophils # 0.1 K/mm3 (0-0.2); Basophils % 0.5 % (0.1-2.0); Eosinophils # 0.2 K/mm3 (0.0-0.4); Eosinophils % 1.6 % (0.1-12.0); Hematocrit 29.7 % (42.0-52.0); Hemoglobin 9.1 g/dL (14.1-18.0); Lymphocytes # 0.8 K/mm3 (0.7-4.5); Lymphocytes % 8.9 % (10-50); Mean Corpuscular HGB Conc 30.8 g/dL (31.8-35.4); Mean Corpuscular Hemoglobin 27.1 pg (27.0-31.2); Mean Corpuscular Volume 88.2 fl (80-94); Mean Platelet Volume 9.5 fl (7.4-10.4); Monocytes # 0.5 K/mm3 (0.1-1.0); Monocytes % 5.5 % (1.7-9.3); Neutrophils # 7.7 K/mm3 (1.8-7.8); Neutrophils % 83.4 % (37.0-80.0); Platelet Count 176 K/mm3 (142-424); Red Blood Count 3.37 M/mm3 (4.60-6.20); Red Cell Distribution Width 16.8 % (11.5-17.5); White Blood Count 9.3 K/mm3 (4.8-10.8)
[2020-12-18 11:25] LABS: Prothrombin Time 16.8 seconds (10.1-12.5)
[2020-12-18 11:26] LABS: INR 1.46 (0.9-1.1)
== END ==
PROVIDERS: Visit Provider Nurse Practitioner Family
DX: Z51.81 Encounter for therapeutic drug level monitoring (principal); Z79.01 Long term (current) use of anticoagulants
CPT/HCPCS: 36415; 85025; 85610

== ENCOUNTER → 2020-12-27 07:13 | Outpatient (CLI) | payer MEDICARE, SELFPAY ==
[2020-12-27 14:16] LABS: Prothrombin Time 27.1 seconds (10.1-12.5)
[2020-12-27 14:26] LABS: INR 2.45 (0.9-1.1)
== END ==
PROVIDERS: Visit Provider Nurse Practitioner Family
DX: Z51.81 Encounter for therapeutic drug level monitoring (principal); Z79.01 Long term (current) use of anticoagulants
CPT/HCPCS: 36415; 85610

== ENCOUNTER → 2021-01-02 16:44 | Outpatient (CLI) | payer MEDICARE, SELFPAY ==
[2021-01-02 16:48] LABS: Microscopic, Urine URINE MICROSCOPIC (MICROSCOPIC)
[2021-01-02 16:57] LABS: Appearance,Urine TURBID (Clear); Blood, Urine 3+ (Negative); Color,Urine DK YELLOW (Yellow); Glucose,Urine (UA) Negative (Negative); Ketones,Urine Negative (Negative); Leukocyte Esterase,Urine 2+ (Negative); Nitrate,Urine Negative (Negative); PH,Urine 5.5 (5.0-8.5); Protein,Urine 2+ (Negative); Specific Gravity, Urine 1.025 (1.005-1.030); Urobilinogen,Urine 0.2 EU/dl (0.2)
[2021-01-02 17:06] LABS: Bilirubin,Urine 1+ (Negative)
[2021-01-02 17:16] LABS: Bacteria,Urine Trace /lpf; RBC,Urine 20-50 #/hpf (0-3); Renal Epithelial Cells,Urine Occasional #/lpf (0)
[2021-01-02 17:17] LABS: Amorphous Sediment,Urine Trace /lpf; Mucus,Urine Trace /lpf
[2021-01-02 17:18] LABS: Fatty Casts,Urine Occasional #/lpf (0)
== END ==
PROVIDERS: Visit Provider Nurse Practitioner Family
DX: N39.0 Urinary tract infection, site not specified (principal); A04.2 Enteroinvasive Escherichia coli infection
CPT/HCPCS: 81001; 87086; 87088; 87186

== ENCOUNTER → 2021-01-04 18:54 | Outpatient (CLI) | payer MEDICARE, SELFPAY ==
[2021-01-04 19:04] LABS: Basophils # 0.1 K/mm3 (0-0.2); Basophils % 1.1 % (0.1-2.0); Eosinophils # 0.4 K/mm3 (0.0-0.4); Eosinophils % 7.7 % (0.1-12.0); Hematocrit 33.8 % (42.0-52.0); Hemoglobin 10.3 g/dL (14.1-18.0); Lymphocytes # 0.8 K/mm3 (0.7-4.5); Lymphocytes % 16.6 % (10-50); Mean Corpuscular HGB Conc 30.4 g/dL (31.8-35.4); Mean Corpuscular Hemoglobin 26.5 pg (27.0-31.2); Mean Corpuscular Volume 87.2 fl (80-94); Monocytes # 0.5 K/mm3 (0.1-1.0); Monocytes % 10.1 % (1.7-9.3); Neutrophils # 3.1 K/mm3 (1.8-7.8); Neutrophils % 64.5 % (37.0-80.0); Platelet Count 152 K/mm3 (142-424); Red Blood Count 3.88 M/mm3 (4.60-6.20); Red Cell Distribution Width 17.4 % (11.5-17.5); White Blood Count 4.8 K/mm3 (4.8-10.8)
[2021-01-04 19:23] LABS: Alanine Aminotransferase 12 U/L (12-78); Albumin Level 2.9 g/dl (3.5-5.0); Alkaline Phosphatase 73 U/L (38-126); Anion Gap 12.5 mEq/L (5-15); Aspartate Amino Transferase 23 U/L (17-59); Blood Urea Nitrogen 36 mg/dl (9-20); Calcium 8.6 mg/dl (8.4-10.2); Carbon Dioxide 26 mmol/L (22.0-30.0); Chloride 110 mmol/L (98-107); Estimated Glomerular Filt Rate 54 ml/min (>60); GFR (African American) 66 ML/MIN (>60); Globulin 2.8 g/dL (1.3-3.2); Glucose 135 mg/dl (74-100); Potassium 4.5 mmoL/L (3.5-5.1); Sodium 144 mmol/L (136-145); Total Protein,Serum 5.7 g/dl (6.3-8.2)
== END ==
PROVIDERS: Visit Provider Nurse Practitioner Family
DX: Z51.81 Encounter for therapeutic drug level monitoring (principal); Z79.01 Long term (current) use of anticoagulants; E11.9 Type 2 diabetes mellitus without complications; Z79.4 Long term (current) use of insulin
CPT/HCPCS: 80053; 85025

== ENCOUNTER → 2021-01-18 12:23 | Outpatient (CLI) | payer MEDICARE, SELFPAY ==
[2021-01-18 12:47] LABS: Appearance,Urine TURBID (Clear); Bilirubin,Urine Negative (Negative); Blood, Urine 2+ (Negative); Color,Urine DK YELLOW (Yellow); Glucose,Urine (UA) Negative (Negative); Ketones,Urine Negative (Negative); Leukocyte Esterase,Urine 2+ (Negative); Nitrate,Urine Negative (Negative); Protein,Urine TRACE (Negative); Specific Gravity, Urine 1.025 (1.005-1.030); Urobilinogen,Urine 0.2 EU/dl (0.2)
[2021-01-18 13:12] LABS: Amorphous Sediment,Urine 1+ /lpf; Microscopic, Urine URINE MICROSCOPIC (MICROSCOPIC); RBC,Urine 50-100 #/hpf (0-3)
== END ==
PROVIDERS: Visit Provider Internal Medicine Adolescent Medicine
DX: N39.0 Urinary tract infection, site not specified (principal)
CPT/HCPCS: 81001; 87086

== ENCOUNTER → 2021-01-18 16:09 | Outpatient (CLI) | payer MEDICARE, SELFPAY ==
[2021-01-18 16:32] LABS: Basophils # 0.1 K/mm3 (0-0.2); Basophils % 0.8 % (0.1-2.0); Eosinophils # 0.5 K/mm3 (0.0-0.4); Eosinophils % 6.7 % (0.1-12.0); Hemoglobin 11.1 g/dL (14.1-18.0); Lymphocytes # 1.2 K/mm3 (0.7-4.5); Lymphocytes % 16.5 % (10-50); Mean Corpuscular HGB Conc 30.7 g/dL (31.8-35.4); Mean Corpuscular Volume 84.7 fl (80-94); Mean Platelet Volume 10.2 fl (7.4-10.4); Monocytes # 0.5 K/mm3 (0.1-1.0); Neutrophils # 5.2 K/mm3 (1.8-7.8); Neutrophils % 69.9 % (37.0-80.0); Platelet Count 147 K/mm3 (142-424); Red Blood Count 4.25 M/mm3 (4.60-6.20); Red Cell Distribution Width 16.8 % (11.5-17.5); White Blood Count 7.5 K/mm3 (4.8-10.8)
[2021-01-18 16:46] LABS: Prothrombin Time 21.5 seconds (10.1-12.5)
[2021-01-18 16:51] LABS: INR 1.91 (0.9-1.1)
[2021-01-18 17:11] LABS: Alanine Aminotransferase 12 U/L (12-78); Albumin Level 2.9 g/dl (3.5-5.0); Alkaline Phosphatase 69 U/L (38-126); Anion Gap 10.2 mEq/L (5-15); Aspartate Amino Transferase 23 U/L (17-59); Bilirubin,Total 0.5 mg/dl (0.2-1.3); Blood Urea Nitrogen 35 mg/dl (9-20); Calcium 8.7 mg/dl (8.4-10.2); Carbon Dioxide 28 mmol/L (22.0-30.0); Chloride 108 mmol/L (98-107); Estimated Glomerular Filt Rate 50 ml/min (>60); GFR (African American) 60 ML/MIN (>60); Globulin 2.9 g/dL (1.3-3.2); Glucose 172 mg/dl (74-100); Potassium 5.2 mmoL/L (3.5-5.1); Sodium 141 mmol/L (136-145); Total Protein,Serum 5.8 g/dl (6.3-8.2)
== END ==
PROVIDERS: Visit Provider Nurse Practitioner Family
DX: E11.9 Type 2 diabetes mellitus without complications (principal); Z51.81 Encounter for therapeutic drug level monitoring; Z79.01 Long term (current) use of anticoagulants; R82.90 Unspecified abnormal findings in urine
CPT/HCPCS: 80053; 81001; 84550; 85025; 85610; 87086

== ENCOUNTER → 2021-01-21 16:08 | Outpatient (CLI) | payer MEDICARE, SELFPAY ==
[2021-01-21 16:29] LABS: Prothrombin Time 21.9 seconds (10.1-12.5)
[2021-01-21 16:55] LABS: INR 1.95 (0.9-1.1)
== END ==
PROVIDERS: Visit Provider Nurse Practitioner Family
DX: Z51.81 Encounter for therapeutic drug level monitoring (principal); Z79.01 Long term (current) use of anticoagulants
CPT/HCPCS: 85610

== ENCOUNTER → 2021-01-22 08:07 | Outpatient (CLI) | payer MEDICARE, SELFPAY ==
[2021-01-22 13:35] LABS: Basophils % 0.3 % (0.1-2.0); Eosinophils % 0.4 % (0.1-12.0); Hematocrit 40.1 % (42.0-52.0); Hemoglobin 11.9 g/dL (14.1-18.0); Lymphocytes # 1.1 K/mm3 (0.7-4.5); Lymphocytes % 12.3 % (10-50); Mean Corpuscular HGB Conc 29.6 g/dL (31.8-35.4); Mean Corpuscular Hemoglobin 25.6 pg (27.0-31.2); Mean Corpuscular Volume 86.6 fl (80-94); Mean Platelet Volume 10.7 fl (7.4-10.4); Monocytes # 0.6 K/mm3 (0.1-1.0); Monocytes % 6.6 % (1.7-9.3); Neutrophils # 7.2 K/mm3 (1.8-7.8); Neutrophils % 80.4 % (37.0-80.0); Platelet Count 179 K/mm3 (142-424); Red Blood Count 4.63 M/mm3 (4.60-6.20); Red Cell Distribution Width 16.8 % (11.5-17.5)
[2021-01-22 14:09] LABS: Chloride 109 mmol/L (98-107); Potassium 5.6 mmoL/L (3.5-5.1); Sodium 145 mmol/L (136-145)
[2021-01-22 14:12] LABS: Alanine Aminotransferase 11 U/L (12-78); Albumin Level 3.5 g/dl (3.5-5.0); Albumin/Globulin Ratio 1.1 (1.1-1.8); Alkaline Phosphatase 85 U/L (38-126); Anion Gap 17.6 mEq/L (5-15); Aspartate Amino Transferase 24 U/L (17-59); Bilirubin,Total 0.6 mg/dl (0.2-1.3); Blood Urea Nitrogen 39 mg/dl (9-20); Carbon Dioxide 24 mmol/L (22.0-30.0); Estimated Glomerular Filt Rate 40 ml/min (>60); GFR (African American) 48 ML/MIN (>60); Globulin 3.3 g/dL (1.3-3.2); Total Protein,Serum 6.8 g/dl (6.3-8.2)
[2021-01-22 15:45] LABS: Glucose 22 mg/dl (74-100)
== END ==
PROVIDERS: Visit Provider Nurse Practitioner Family
DX: N17.9 Acute kidney failure, unspecified (principal)
CPT/HCPCS: 36415; 80053; 85025

== ENCOUNTER 2021-01-22 08:58 | Observation (INO) | payer MEDICARE, SELFPAY ==
[2021-01-22] VITALS (12 sets, daily range): BP systolic 139–176; BP diastolic 65–116; PULSE 65–72; RESP 11–25; TEMP 36.4–36.9; O2SAT 83–100; BMI 25.8; BMI 28.5
--- NOTE | 2021-01-22 09:08 | HMH.EDGENADL ---
ED Disposition Clinical Impression: Hypoglycemia Congestive heart failure Qualifiers: Heart failure type: unspecified Heart failure chronicity: acute on chronic Qualified Code(s): I50.9 - Heart failure, unspecified Respiratory failure with hypoxia Qualifiers: Chronicity: acute Qualified Code(s): J96.01 - Acute respiratory failure with hypoxia Disposition: Admitted As Inpatient Condition on Discharge: Fair - Critical Care Critical Care Time: No Attestation: On , the high probability of a clinically significant, sudden or life threatening deterioration of the following system(s) required my full and direct attention, intervention and personal management. The time I documented below is in addition to time spent performing reported procedures but includes the following listed in this critical care notation. Medical Decision Making - Medical Records Medical records reviewed: Yes: I reviewed the patient's medical records. MR Comment: Discharge summary reviewed from admission 11/12/2020 through 11/15/2020 for altered mental status, acute kidney injury, urinary tract infection. Reviewed prison transfer forms. - [place] Inquiry Pt receiving controlled substance: No Vital Signs: 01/22/21 08:59 01/22/21 09:45 01/22/21 10:00 Temperature 98.1 F Temperature Source Oral Pulse Rate 70 70 Pulse Rate [Left] 70 Respiratory Rate 11 L 22 12 Blood Pressure 167/77 H 176/88 H Blood Pressure [Right Arm] 152/78 H Blood Pressure Mean [Right Arm] 102 Blood Pressure Source [Right Arm] Automatic Cuff Blood Pressure Position [Right Arm] Supine 02 Sat by Pulse Oximetry 95 97 98 Oxygen Delivery Method Nasal Cannula Oxygen Flow Rate (LPM) 5 - Lab Data Lab Results 01/22/21 09:12: WBC 9.3, RBC 4.58 L, Hgb 11.9 L, Hct 39.8 L, MCV 86.9, MCH 26.0 L, MCHC 29.9 L, RDW 17.0, Plt Count 176, MPV 10.4, Neut % (Auto) 81.6 H, Lymph % (Auto) 11.6, [place] % (Auto) 5.3, Eos % (Auto) 0.7, Baso % (Auto) 0.8, Neut # (Auto) 7.6, Lymph # (Auto) 1.1, [place] # (Auto) 0.5, Eos # (Auto) 0.1, Baso # (Auto) 0.1 01/22/21 09:13: Specimen Source Right brachial, O2 % 7l, ABG pH 7.34 L, ABG pCO2 42.7, ABG pO2 86.7, ABG HCO3 22.5, ABG Total CO2 23.8, ABG O2 Saturation 97, ABG Base Excess -3.3 L, Fredy Test 01/22/21 09:16: Lactate 1.6 01/22/21 09:16: Urine Color Yellow, Urine Appearance Turbid, Urine pH 5.5, Ur Specific [place] >= 1.030, Urine Protein 1+, Urine Glucose (UA) Negative, Urine Ketones Negative, Urine Blood 3+, Urine Nitrate Negative, Urine Bilirubin 1+ A, Urine Urobilinogen 0.2, Ur Leukocyte Esterase 2+ A, Urine RBC 10-20, Urine WBC 5-10, Ur Squamous Epith Cells None, Urine Bacteria None 01/22/21 09:48: SARS-CoV-2 (PCR) Not detected, Influenza A Untype (PCR) Not detected, Influenza Type B (PCR) Not detected 01/22/21 09:54: POC Glucose 157 H 01/22/21 09:55: Sodium 143, Potassium 5.7 H, Chloride 112 H, Carbon Dioxide 20 L, Anion Gap 16.7 H, BUN 42 H, Creatinine 1.50 H, Estimated Creat Clear 52, Estimated GFR 46 L, Est GFR ( Amer) 56 L, Glucose 133 H, Calcium 8.8, Total Bilirubin 0.8, AST 42, ALT 13, Alkaline Phosphatase 80, Troponin I 0.03, NT-Pro-B Natriuret Pep 44216 H, Total Protein 6.8, Albumin 3.5, Globulin 3.3 H, Albumin/Globulin Ratio 1.1, Lipase < 10 L 01/22/21 10:30: PT 25.1 H, INR 2.26 H Result diagrams: 01/22/21 09:12 01/22/21 09:55 Orders (Tests/Meds): ED MEDICATIONS Discontinued Medications Generic Name Dose Route Start Last Admin Trade Name Freq PRN Reason Stop Dose Admin Dextrose 50 ml 01/22/21 09:13 01/22/21 09:18 Dextrose 50% 50ml Syringe (Crash Cart) IVP 01/22/21 09:14 50 ml ONCE ONE Administration Furosemide 80 mg 01/22/21 11:21 01/22/21 11:24 Furosemide 40mg/4ml Vial IV 01/22/21 11:22 80 mg ONCE ONE Administration Iopamidol 75 ml 01/22/21 11:32 01/22/21 11:33 Iopamidol-370 (76%);100ml Bottle IV 01/22/21 11:33 75 ml ONCE ONE Administration Sodium Chloride 10 ml
--- NOTE | 2021-01-22 09:15 | XR_ITS ---
PROCEDURE: XR CHEST PORTABLE CLINICAL HISTORY: hypoxia COMPARISON: CR CXR1 CHEST-PORTABLE from 05/14/2015 CR CXR CHEST(2 VIEWS-NOT PORTABLE) from 09/30/2016 CR XR CHEST PORTABLE PICC PLAC from 11/15/[address] ABDOMEN PELVIS W CON from 01/22/2021 FINDINGS: There is cardiomegaly with pulmonary venous congestion consistent with CHF. Biventricular pacemaker is present with right atrial lead also present. Airspace opacification is present in the lower lobes and may be due to edema or pneumonia with bilateral pleural effusions with bibasilar atelectatic changes. There has been a prior CABG. There are multiple small opacities in the left axillary region possibly due to something upon the patient. IMPRESSION: CHF with bilateral effusions and bilateral lower lobe airspace disease which may be due to pulmonary edema with atelectatic change. Dictated by: Fredy Mccann MD 01/22/2021 11:13 Fredy Mccann MD in [facility] 01/22/2021 11:13
--- NOTE | 2021-01-22 09:17 | CT_ITS ---
PROCEDURE: CT HEAD/BRAIN WO CON CLINICAL INDICATION: ams, mult falls COMPARISON: No exams were available for comparison TECHNIQUE: Axial images obtained. All CT scans at the facility use one or more dose reduction, viz: automated exposure control, ma/kV adjustment per patient size (including targeted exams where dose is matched to indication, i.e. head), or iterative reconstruction technique. FINDINGS: No midline shift, mass effect, intracranial hemorrhage, hydrocephalus, or extra-axial fluid collection is evident. There is generalized atrophy with hypoattenuation of the periventricular white matter consistent with microangiopathic changes. There is a prominent cavum septum pellucidum. Old lacunar infarction in the right anterior allen radiata. The calvarium has an unremarkable appearance. No mastoid effusion. Mild mucosal thickening noted involving the ethmoid sinuses. IMPRESSION: No acute intracranial finding Dictated by: Fredy Mccann MD 01/22/2021 11:43 Fredy Mccann MD in [facility] 01/22/2021 11:43
--- NOTE | 2021-01-22 09:18 | CT_ITS ---
PROCEDURE: CT ABDOMEN PELVIS W CON CLINICAL INDICATION: abdo pain COMPARISON: No exams were available for comparison TECHNIQUE: IV Contrast: 75ML Isovue 370 Oral Contrast None Axial images obtained with sagittal and coronal reformats. All CT scans at the facility use one or more dose reduction, viz: automated exposure control, ma/kV adjustment per patient size (including targeted exams where dose is matched to indication, i.e. head), or iterative reconstruction technique. FINDINGS: LOWER THORAX: There are medium-sized bilateral pleural effusions. There is right basilar consolidation/atelectatic change. Atelectasis present in the left lower lobe. There is cardiomegaly. Bilateral gynecomastia. ABDOMEN & PELVIS: The liver margin is irregular with the liver slightly small consistent with cirrhosis. No focal liver lesions are evident. The spleen is not enlarged. Gallstones are noted. The adrenal glands are unremarkable. There is diffuse pancreatic atrophy and fatty infiltration. No renal or ureteral calculi or hydronephrosis. There are some patchy areas of decreased enhancement involving the lower pole and mid polar region of the right kidney in the upper pole of the left kidney. This is nonspecific and could be due to hypoperfusion or pyelonephritis. There is a mild amount of retained colonic feces. The appendix is not clearly delineated. No evidence of appendicitis. No intestinal obstruction or free air. No evidence of diverticulitis. Small amount fluid is present in the pericolic gutters and pelvis. There is some thickening of the presacral fat. There is mild diffuse truncal edema. No acute bony findings. IMPRESSION: 1. Bilateral pleural effusion with bibasilar airspace disease 2. Cirrhosis with ascites and mild diffuse truncal edema. 3. Patchy areas of decreased enhancement of both kidneys which could be due to hypoperfusion or pyelonephritis Dictated by: Fredy Mccann MD 01/22/2021 11:52 Fredy Mccann MD in [facility] 01/22/2021 11:53
--- NOTE | 2021-01-22 09:24 | ECG_ITS ---
APPROVED REPORT Exam: Resting ECG HR:70 bpm ECG Measurements Heart Rate 70 AXES QRSd 128 QRS -69 QT 444 T 114 QTc 479 Conclusion Electronic ventricular pacemaker Electronically signed by : Delgado Lewis, 01/23/2021 21:39:08
[2021-01-22 09:28] LABS: Basophils # 0.1 K/mm3 (0-0.2); Basophils % 0.8 % (0.1-2.0); Eosinophils # 0.1 K/mm3 (0.0-0.4); Eosinophils % 0.7 % (0.1-12.0); Hematocrit 39.8 % (42.0-52.0); Hemoglobin 11.9 g/dL (14.1-18.0); Lymphocytes # 1.1 K/mm3 (0.7-4.5); Lymphocytes % 11.6 % (10-50); Mean Corpuscular HGB Conc 29.9 g/dL (31.8-35.4); Mean Corpuscular Volume 86.9 fl (80-94); Mean Platelet Volume 10.4 fl (7.4-10.4); Monocytes # 0.5 K/mm3 (0.1-1.0); Monocytes % 5.3 % (1.7-9.3); Neutrophils # 7.6 K/mm3 (1.8-7.8); Neutrophils % 81.6 % (37.0-80.0); Platelet Count 176 K/mm3 (142-424); Red Blood Count 4.58 M/mm3 (4.60-6.20); White Blood Count 9.3 K/mm3 (4.8-10.8)
[2021-01-22 09:39] LABS: Appearance,Urine TURBID (Clear); Blood, Urine 3+ (Negative); Color,Urine YELLOW (Yellow); Glucose,Urine (UA) Negative (Negative); Ketones,Urine Negative (Negative); Leukocyte Esterase,Urine 2+ (Negative); Microscopic, Urine URINE MICROSCOPIC (MICROSCOPIC); Nitrate,Urine Negative (Negative); PH,Urine 5.5 (5.0-8.5); Protein,Urine 1+ (Negative); Specific Gravity, Urine >= 1.030 (1.005-1.030); Urobilinogen,Urine 0.2 EU/dl (0.2)
[2021-01-22 09:42] LABS: Bilirubin,Urine 1+ (Negative)
[2021-01-22 09:46] LABS: Lactic Acid 1.6 mmol/L (0.7-2.1)
[2021-01-22 09:53] LABS: Coronavirus 19, PCR Not Detected (NotDetected); Influenza A, PCR Not Detected (NotDetected); Influenza B, PCR Not Detected (NotDetected)
[2021-01-22 10:02] LABS: POC Glucose,Bedside 157 (70-110)
--- NOTE | 2021-01-22 10:07 | PC.NURSE ---
Family at bedside
[2021-01-22 10:14] LABS: Chloride 112 mmol/L (98-107)
--- NOTE | 2021-01-22 10:14 | PC.NURSE ---
RT at bedside
[2021-01-22 10:15] LABS: Potassium 5.7 mmoL/L (3.5-5.1); Sodium 143 mmol/L (136-145)
[2021-01-22 10:17] LABS: Alanine Aminotransferase 13 U/L (12-78); Albumin Level 3.5 g/dl (3.5-5.0); Albumin/Globulin Ratio 1.1 (1.1-1.8); Alkaline Phosphatase 80 U/L (38-126); Anion Gap 16.7 mEq/L (5-15); Aspartate Amino Transferase 42 U/L (17-59); Bilirubin,Total 0.8 mg/dl (0.2-1.3); Blood Urea Nitrogen 42 mg/dl (9-20); Calcium 8.8 mg/dl (8.4-10.2); Carbon Dioxide 20 mmol/L (22.0-30.0); Creatinine Clearance Estimated 52 mL/min (50-200); Estimated Glomerular Filt Rate 46 ml/min (>60); GFR (African American) 56 ML/MIN (>60); Globulin 3.3 g/dL (1.3-3.2); Glucose 133 mg/dl (74-100); Total Protein,Serum 6.8 g/dl (6.3-8.2)
[2021-01-22 10:18] LABS: Lipase < 10 U/L (23-300)
[2021-01-22 10:27] LABS: ABG Base Excess -3.3 mmol/L (-2.4-2.3); ABG HCO3 22.5 mmhg (22.0-26.0); ABG Oxygen Saturation 97 % (90-100); ABG PCO2 42.7 mmhg (35.0-45.0); ABG PH 7.34 mmol/L (7.35-7.45); ABG PO2 86.7 mmhg (80-100); ABG TCO2 23.8 mmhg (23-27)
[2021-01-22 10:31] LABS: Oxygen 7L %; Source Right Brachial
[2021-01-22 10:49] LABS: NT Pro Brain Natriuretic Pep. 15500 pg/mL (0-125)
--- NOTE | 2021-01-22 10:49 | PC.NURSE ---
Pt with rad.
[2021-01-22 10:53] LABS: Troponin I 0.03 ng/ml (0.00-0.034)
[2021-01-22 10:56] LABS: Prothrombin Time 25.1 seconds (10.1-12.5)
[2021-01-22 11:00] LABS: INR 2.26 (0.9-1.1)
--- NOTE | 2021-01-22 11:05 | PC.NURSE ---
Pt returned from rad.
--- NOTE | 2021-01-22 11:17 | PC.NURSE ---
LIGIA DIEHL speaking with Dr. Fairchild
--- NOTE | 2021-01-22 12:39 | PC.NURSE ---
spoke with Kaylynn GARCIA at [facility] and updated her on patient condition and also informed her that the patient will be admitted into the hospital.
[2021-01-22 12:45] LABS: POC Glucose,Bedside 99 (70-110)
--- NOTE | 2021-01-22 12:50 | PC.NURSE ---
called report to Tawanna GARCIA
[2021-01-22 13:19] LABS: Troponin I 0.04 ng/ml (0.00-0.034)
--- NOTE | 2021-01-22 13:33 | HMH.PHAINT ---
MEDICATION RECONCILIATION COMPLETED ON PATIENT USING MAR FROM [facility]. -LARA CASTILLO, BRYCED
--- NOTE | 2021-01-22 13:35 | HMH.PHAVTE ---
[facility] VTE Monitoring - Patient Demographics Admission date: 01/22/21 Report Date: 01/22/21 Time: 13:35 Allergies/Adverse Reactions: Patient Allergies No Known Allergies Allergy (Unverified 06/30/17 14:56) Height: 1.73 m Weight: 85.304 kg Patient Problems: Current Active Problems Congestive heart failure, unspecified (Acute) Hypoglycemia (Acute) Respiratory failure with hypoxia (Acute) - VTE Risk Labs: VTE Related Lab Results Hgb 11.9 g/dL (14.1-18.0) L 01/22/21 09:12 Hct 39.8 % (42.0-52.0) L 01/22/21 09:12 Plt Count 176 K/mm3 (142-424) 01/22/21 09:12 PT 25.1 seconds (10.1-12.5) H 01/22/21 10:30 INR 2.26 (0.9-1.1) H 01/22/21 10:30 BUN 42 mg/dl (9-20) H 01/22/21 09:55 Creatinine 1.50 mg/dl (0.66-1.25) H 01/22/21 09:55 Estimated Creat Clear 52 mL/min (50-200) 01/22/21 09:55 - Prophylaxis VTE Prophylaxis Ordered?: Yes Types of VTE Prophylaxis: TEDS Knee High, Pharmacological Location of Applied Device: Bilateral Lower Extremeties Pharmacologic Type: Warfarin
--- NOTE | 2021-01-22 13:44 | HMH.HP ---
*Admission Date: 01/22/21 *Chief complaint: Altered mental status *History of present illness: Timothy is a 70-year-old male with history of dementia and CHF who was brought to the hospital/ER by ambulance from [facility]. He developed over the course the weekend worsening respiratory distress, low blood pressure, low blood sugar and altered mental status. Currently being treated for UTI with Invanz as he has recurrent UTIs with resistant pathogens. On arrival to the ER he was found to be hypoglycemic and somewhat altered. Given a dose of D 50 with improvement in his blood sugar and mentation. Work-up showed concern for CHF exacerbation, volume overload, effusions bilaterally. Admitted to medicine for further management of CHF exacerbation, UTI, encephalopathy. On interview this afternoon after arriving to the floor, patient is alert and oriented to person. Pleasantly demented telling me he graduated high school last year. Does not know where he is or why but is very oriented to person. States he has some mild shortness of breath but otherwise no acute complaints. Ate dinner. Mullen catheter in place with at least 300 cc of light yellow urine. Denies nausea, chest pain, vomiting, diarrhea, or fever. [facility] History I have reviewed the patient's past medical history: Yes Medical History: Reports:: Congestive Heart Failure, Chronic Obstructive Pulmonary Disease (COPD), Dementia, Diabetes Mellitus Type 2 *Have you ever received a pneumonia vaccine?: Yes *Have you received a flu vaccine this season?: Yes Other Medical History: Reports: Anemia Other Surgeries: Yes: Other - *Social History Smoking Status: Former smoker Alcohol Intake: never Substance Use Type: denies use *Occupational Status:: retired, other *Travel in the last 8 weeks: None Family Hx:: Non-contributory Review of Systems - Review of Systems Review of systems:: pertinent systems reviewed and negative unless documented below (14 point review of systems performed, pertinent positives and negatives as per HPI) Meds Home Medications Medication Instructions Recorded Confirmed Type Alfuzosin HCl [Alfuzosin HCl ER] 10 mg PO DAILY 11/12/20 01/22/21 History Ascorbic Acid 500 mg PO DAILY 11/12/20 01/22/21 History Aspirin [Aspirin 81mg chewable 81 mg PO DAILY 11/12/20 01/22/21 History tab] Budesonide/Formoterol Fumarate 2 puffs IH BID 11/12/20 01/22/21 History [Budesonide-Formoterol 160-4.5] Famotidine [Pepcid] 20 mg PO DAILY 11/12/20 01/22/21 History Ferrous Sulfate 325 mg PO BID 11/12/20 01/22/21 History Insulin Glargine,Hum.rec.anlog 25 units SQ HS 11/12/20 01/22/21 History [Lantus Solostar 100 Units/mL 3mL flexpen] Metoprolol Succinate [Metoprolol 100 mg PO DAILY 11/12/20 01/22/21 History Succinate 200mg Tablet*] Tiotropium [place] [Spiriva 1 cap IH DAILY 11/12/20 01/22/21 History 18mcg/puff inhaler] Cholecalciferol (Vitamin D3) 1,000 unit PO DAILY 11/13/20 01/22/21 History [Vitamin D3 1,000 Unit Tab] Pravastatin Sodium 80 mg PO HS 11/13/20 01/22/21 History Colchicine 0.6 mg PO DAILY 01/22/21 01/22/21 History Escitalopram Oxalate 10 mg PO DAILY 01/22/21 01/22/21 History Magnesium Oxide [Magnesium] 250 mg PO DAILY 01/22/21 01/22/21 History Quetiapine Fumarate [Seroquel 25mg 25 mg PO BID 01/22/21 01/22/21 History tablet] Warfarin Sodium [Coumadin 5mg 2.5 mg PO DAILY 01/22/21 01/22/21 History tablet] allopurinoL [Allopurinol 100mg 100 mg PO DAILY 01/22/21 01/22/21 History tablet] lisinopriL [Zestril 10mg Tab] 10 mg PO DAILY 01/22/21 01/22/21 History Allergies Allergy/AdvReac Type Severity Reaction Status Date / Time No Known Allergies Allergy Unverified 06/30/17 14:56 Exam Vital signs and Labs for Last 24 Hours: Temp Pulse Resp BP Pulse Ox 97.6 F 71 19 159/94 H 99 01/22/21 13:22 01/22/21 13:22 01/22/21 13:22 01/22/21 13:22 01/22/21 13:22 Laboratory Results - l
--- NOTE | 2021-01-22 16:24 | PC.WOUNDNOTE ---
Multiple stage 2 ulcerations noted to bilateral buttocks
[2021-01-22 16:55] LABS: POC Glucose,Bedside 96 (70-110)
[2021-01-22 17:15] LABS: Troponin I 0.03 ng/ml (0.00-0.034)
[2021-01-22 20:57] LABS: POC Glucose,Bedside 92 (70-110)
--- NOTE | 2021-01-22 23:44 | PC.NURSE ---
RA SATS WERE 87% RETURNED PT TO 3L NC
[2021-01-23 01:36] LABS: POC Glucose,Bedside 84 (70-110)
[2021-01-23 04:00] VITALS: BP 167/77; PULSE 72; RESP 18; TEMP 36.8; O2SAT 98
--- NOTE | 2021-01-23 04:06 | PC.NURSE ---
pt is oriented to name only, remains on 3L NC this shift, no complaints of pain, FSBS have been 92 and 84 this shift, pt has been restless, uncooperative, yelling out, manager investigations notified and new orders received and carried out, since then pt has rested well, carlson remains in place with clear yellow urine noted with 800 mL out so far this shift
[2021-01-23 05:00] VITALS: BMI 28.7
[2021-01-23 06:30] VITALS: O2SAT 92
[2021-01-23 07:39] VITALS: BP 168/80; PULSE 70; RESP 24; TEMP 36.5; O2SAT 98
--- NOTE | 2021-01-23 07:44 | SW/DCPLANNER ---
PATIENT PRESENTED INTO THE ACUTE HOSPITAL IN AN OBSERVATION STATUS AT THIS TIME FROM [facility].. HE PRESENTED IN WITH CHF AND UTI..I HAVE CALLED THE INSPECTOR FILTER TIP AT [facility] TO SEE IF HE IS ON A BEDHOLD THERE OR IF HE IS SKILLED.... WILL FOLLOW BACK UP WITH [facility] LATER THIS MORNING...DISPOSITION UNCERTAIN BUT HIS STAY SHOULD BE SHORT..
[2021-01-23 08:23] LABS: Basophils # 0.1 K/mm3 (0-0.2); Basophils % 0.9 % (0.1-2.0); Eosinophils # 0.3 K/mm3 (0.0-0.4); Hematocrit 38.3 % (42.0-52.0); Hemoglobin 11.8 g/dL (14.1-18.0); Lymphocytes # 1.3 K/mm3 (0.7-4.5); Lymphocytes % 14.2 % (10-50); Mean Corpuscular HGB Conc 30.8 g/dL (31.8-35.4); Mean Corpuscular Hemoglobin 25.8 pg (27.0-31.2); Mean Platelet Volume 9.3 fl (7.4-10.4); Monocytes # 0.6 K/mm3 (0.1-1.0); Monocytes % 6.8 % (1.7-9.3); Neutrophils # 6.6 K/mm3 (1.8-7.8); Platelet Count 169 K/mm3 (142-424); Red Blood Count 4.56 M/mm3 (4.60-6.20); Red Cell Distribution Width 17.1 % (11.5-17.5); White Blood Count 8.8 K/mm3 (4.8-10.8)
--- NOTE | 2021-01-23 08:40 | HMH.DCSUM ---
General - General Admission date:: 01/22/21 Discharge date: 01/23/21 HPI HPI: Timothy is a 70-year-old male with history of dementia and CHF who was brought to the hospital/ER by ambulance from [facility]. He developed over the course the weekend worsening respiratory distress, low blood pressure, low blood sugar and altered mental status. Currently being treated for UTI with Invanz as he has recurrent UTIs with resistant pathogens. On arrival to the ER he was found to be hypoglycemic and somewhat altered. Given a dose of D 50 with improvement in his blood sugar and mentation. Work-up showed concern for CHF exacerbation, volume overload, effusions bilaterally. Admitted to medicine for further management of CHF exacerbation, UTI, encephalopathy. On interview this afternoon after arriving to the floor, patient is alert and oriented to person. Pleasantly demented telling me he graduated high school last year. Does not know where he is or why but is very oriented to person. States he has some mild shortness of breath but otherwise no acute complaints. Ate dinner. Mullen catheter in place with at least 300 cc of light yellow urine. Denies nausea, chest pain, vomiting, diarrhea, or fever. Hospital Course Hospital Course: Patient was admitted. Found to be fluid overloaded with evidence of elevated BNP. Troponin levels were unremarkable. Patient was diuresed of 2 L and felt much better over the next evening. This morning he continues to feel better, is significantly demented but is talkative, without dyspnea and has much lower oxygen requirement. Echocardiogram shows 35% ejection fraction which is slightly worse than his previous baselines. Patient's blood pressure was acceptable. Plan will be to discharge back to [facility] today. We will initiate Entresto therapy and hold/stop his lisinopril. We will also initiate daily Lasix for the next week, he will need labs, a BMP and a CBC next Thursday, January 28, and we will follow him up on that day at her regular [facility] rounds. Patient's hypoglycemia has resolved. Given his persistent hypoglycemia we will administer no insulin therapy at the [facility] except for low intensity sliding scale. His basal insulin will be discontinued. Objective Vital signs: Temp Pulse Resp BP Pulse Ox 97.7 F 70 24 168/80 H 98 01/23/21 07:39 01/23/21 07:39 01/23/21 07:39 01/23/21 07:39 01/23/21 07:39 no acute distress, obese, chronically ill appearing - *Routine HEENT Exam Head: Present: normocephalic Eye: Present: EOMI, PERRL ENT: Present: mucous membranes moist - *Routine Neck Exam Present: supple - *Routine Respiratory Exam Present: CTA bilaterally - *Routine Cardiovascular Exam Present: RRR, murmur - *Routine Abdominal Exam Present: soft, normoactive bowel sounds. Absent: tenderness - *Routine Extremities Exam Absent: cyanosis, clubbing, edema - *Routine Skin Exam Present: warm. Absent: rash - *Routine Neurological Exam Present: alert Very talkative, completely demented to place and time. However pleasant and cooperative with exam - Detailed Eye Exam Eyelids: Bilateral normal inspection Results Labs on day of discharge: Labs from last 24 hours 01/23/21 01/23/21 01/22/21 08:07 01:29 20:47 WBC 8.8 RBC 4.56 L Hgb 11.8 L Hct 38.3 L MCV 84.0 MCH 25.8 L MCHC 30.8 L RDW 17.1 Plt Count 169 MPV 9.3 Neut % (Auto) 75.0 Lymph % (Auto) 14.2 [place] % (Auto) 6.8 Eos % (Auto) 3.0 Baso % (Auto) 0.9 Neut # (Auto) 6.6 Lymph # (Auto) 1.3 [place] # (Auto) 0.6 Eos # (Auto) 0.3 Baso # (Auto) 0.1 PT INR Specimen Source O2 % ABG pH ABG pCO2 ABG pO2 ABG HCO3 ABG Total CO2 ABG O2 Saturation ABG Base Excess Fredy Test Sodium Potassium Chloride Carbon Dioxide Anion Gap BUN Creatinine Kriss
[2021-01-23 08:41] LABS: Magnesium 1.7 mg/dl (1.6-2.3)
[2021-01-23 08:42] LABS: Anion Gap 14.6 mEq/L (5-15); Blood Urea Nitrogen 41 mg/dl (9-20); Calcium 8.9 mg/dl (8.4-10.2); Carbon Dioxide 25 mmol/L (22.0-30.0); Chloride 108 mmol/L (98-107); Creatinine Clearance Estimated 59 mL/min (50-200); Estimated Glomerular Filt Rate 50 ml/min (>60); GFR (African American) 60 ML/MIN (>60); Glucose 93 mg/dl (74-100); Potassium 5.6 mmoL/L (3.5-5.1); Sodium 142 mmol/L (136-145)
[2021-01-23 10:13] LABS: POC Glucose,Bedside 97 (70-110)
[2021-01-23 10:33] LABS: Prothrombin Time 24.5 seconds (10.1-12.5)
--- NOTE | 2021-01-23 18:23 | CA_ITS ---
APPROVED REPORT EXAM: Comprehensive 2D, Doppler, and color-flow Echocardiogram Pressing Department Supervisor: Coleen Gambino CRT Ht: 5 ft 8 in Wt: 188lbs BSA: 1.99 BP: 159/94 mmHg Indications: COPD, chf, dementia, pacer, CABG, 2D Dimensions LVOT 1.84 cm (M/F) 1.5-2.5 LA Volume 52.90 mL LA Volume Index 26.60 mL/m2 (M/F) 16-34 M-Mode Dimensions RVDd 3.29 cm (0.9-2.6) LA Diam 4.91 cm (1.9-4.0) LVDd 6.12 cm (3.5-5.7) Ao Diam 3.26 cm (2.0-3.7) LVDs 5.12 cm (3.5-5.7) IVSd 1.54 cm (0.6-1.1) PWd 0.89 cm (0.6-1.1) EF (Teich) 33.70% FS 16.30% EDV (Teich) 188.30 mL ESV (Teich) 124.90 mL LV Diastology E Decel Time 130.00 (160-240 msec) E/A Ratio 2.81 MED E' 3.60 (< 7 cm/sec) MED A' 7.90 cm/s E'/MED E' Ratio 23.83 (>14) LAT E' 6.20 (<10 cm/sec) LAT A' 3.50 cm/s E/LAT E' Ratio 13.84 (>14) Aortic Valve AO Peak GR. 3.70 mmHg Mitral Valve MV E Max Jorge. 86.00 (40-130 cm/s) MV A Velocity 31.00 (40-130 cm/s) E/A Ratio 2.81 MV Decel. Time 130.00 (160-240 ms) MV PHT 38.00 ms Pulmonary Valve PV Peak Velocity 169.00 (50-150 cm/s) Tricuspid Valve TR P. Velocity 461.00 cm/s RAP Estimate 10.00 mmHg RVSP 95.10 mmHg Left Ventricle Technically difficult study because of the patient factors and poor acoustic windows, left atrium is moderately enlarged, left ventricle is mildly dilated, visually estimated ejection fraction 40%, there is marked hypokinesis involving mid to distal septum, anterior and anterior apical wall. Diastolic parameters are inconclusive. Right Ventricle Right atrium and right ventricle are mildly enlarged with mild reduced contractility. Pacemaker leads in the right ventricle. Aortic Valve Aortic valve is minimally thickened and fibrosed there is no aortic stenosis or aortic insufficiency. Mitral Valve Mitral valve leaflets are minimally thickened, there is mild mitral regurgitation. Tricuspid Valve There is mild tricuspid regurgitation, calculated right ventricular systolic pressure is approximately 80 mmHg. Pulmonic Valve Pulmonic valve is poorly visualized. Great Vessels Aortic root is normal size. Inferior vena cava is not well visualized. Pericardium No significant pericardial effusion noted. Conclusion 1. Biatrial enlargement, mildly dilated left ventricle, visually estimated ejection fraction 40% with segmental wall motion abnormality described above, diastolic parameters are inconclusive. 2. Moderately enlarged right ventricle with mild reduced contractility. 3. Mild mitral and tricuspid regurgitation, calculated right ventricular systolic pressure is 80 mmHg, inferior vena cava is not well visualized 4. No significant pericardial effusion noted. Electronically signed by : Jamie Aguirre, 01/24/2021 14:37:04
== END 2021-01-23 11:16 ==
LOC: ER 11:32 → 2ND 12:56
PROVIDERS: Admitting Provider Internal Medicine Adolescent Medicine; Emergency Provider Emergency Medicine; PCP Internal Medicine Adolescent Medicine; Visit Provider Internal Medicine Adolescent Medicine
DX: Z79.01 Long term (current) use of anticoagulants; I50.23 Acute on chronic systolic (congestive) heart failure; E11.9 Type 2 diabetes mellitus without complications; Z79.4 Long term (current) use of insulin; J96.01 Acute respiratory failure with hypoxia; N39.0 Urinary tract infection, site not specified; F03.91 Unspecified dementia, unspecified severity, with behavioral disturbance; E87.5 Hyperkalemia; J44.9 Chronic obstructive pulmonary disease, unspecified; D64.9 Anemia, unspecified; N17.9 Acute kidney failure, unspecified; Z20.822 Contact with and (suspected) exposure to COVID-19
CPT/HCPCS: 36415; 70450; 71045; 74177; 80048; 80053; 81001; 82803; 82962; 83605; 83690; 83735; 83880; 84484; 85025; 85610; 87040; 87086; 93005; 93306; 94640; 94760; 94761; 96374; 99282; G0378; Q9967; U0003

== ENCOUNTER → 2021-01-24 10:58 | Outpatient (CLI) | payer MEDICARE, SELFPAY ==
[2021-01-24 13:24] LABS: Prothrombin Time 25.7 seconds (10.1-12.5)
[2021-01-24 13:29] LABS: INR 2.32 (0.9-1.1)
== END ==
PROVIDERS: Visit Provider Internal Medicine Adolescent Medicine
DX: Z51.81 Encounter for therapeutic drug level monitoring (principal); Z79.01 Long term (current) use of anticoagulants
CPT/HCPCS: 85610

== ENCOUNTER → 2021-01-28 16:08 | Outpatient (CLI) | payer MEDICARE, SELFPAY ==
[2021-01-28 16:17] LABS: Basophils # 0.1 K/mm3 (0-0.2); Basophils % 0.9 % (0.1-2.0); Eosinophils # 0.7 K/mm3 (0.0-0.4); Eosinophils % 6.1 % (0.1-12.0); Hematocrit 37.4 % (42.0-52.0); Hemoglobin 11.4 g/dL (14.1-18.0); Lymphocytes % 8.5 % (10-50); Mean Corpuscular HGB Conc 30.5 g/dL (31.8-35.4); Mean Corpuscular Volume 85.3 fl (80-94); Mean Platelet Volume 11.1 fl (7.4-10.4); Monocytes # 0.5 K/mm3 (0.1-1.0); Monocytes % 4.4 % (1.7-9.3); Neutrophils # 9.4 K/mm3 (1.8-7.8); Neutrophils % 80.1 % (37.0-80.0); Platelet Count 157 K/mm3 (142-424); Red Blood Count 4.39 M/mm3 (4.60-6.20); White Blood Count 11.7 K/mm3 (4.8-10.8)
[2021-01-28 16:45] LABS: Chloride 111 mmol/L (98-107); Sodium 146 mmol/L (136-145)
[2021-01-28 16:46] LABS: Potassium 4.6 mmoL/L (3.5-5.1)
[2021-01-28 16:49] LABS: Anion Gap 13.6 mEq/L (5-15); Blood Urea Nitrogen 53 mg/dl (9-20); Calcium 8.3 mg/dl (8.4-10.2); Carbon Dioxide 26 mmol/L (22.0-30.0); Estimated Glomerular Filt Rate 46 ml/min (>60); GFR (African American) 56 ML/MIN (>60); Glucose 200 mg/dl (74-100)
[2021-01-28 17:07] LABS: INR 2.15 (0.9-1.1)
== END ==
PROVIDERS: Visit Provider Internal Medicine Adolescent Medicine
DX: I50.9 Heart failure, unspecified (principal); E11.9 Type 2 diabetes mellitus without complications; Z51.81 Encounter for therapeutic drug level monitoring; Z79.01 Long term (current) use of anticoagulants
CPT/HCPCS: 80048; 85025; 85610

== ENCOUNTER → 2021-02-04 07:06 | Outpatient (CLI) | payer MEDICARE, SELFPAY ==
[2021-02-04 14:05] LABS: Basophils # 0.1 K/mm3 (0-0.2); Basophils % 0.9 % (0.1-2.0); Eosinophils # 0.2 K/mm3 (0.0-0.4); Eosinophils % 2.6 % (0.1-12.0); Hematocrit 40.7 % (42.0-52.0); Hemoglobin 11.6 g/dL (14.1-18.0); Lymphocytes # 0.9 K/mm3 (0.7-4.5); Mean Corpuscular HGB Conc 28.4 g/dL (31.8-35.4); Mean Corpuscular Hemoglobin 25.2 pg (27.0-31.2); Mean Corpuscular Volume 88.7 fl (80-94); Mean Platelet Volume 11.2 fl (7.4-10.4); Monocytes # 0.6 K/mm3 (0.1-1.0); Monocytes % 8.6 % (1.7-9.3); Neutrophils # 4.9 K/mm3 (1.8-7.8); Neutrophils % 74.8 % (37.0-80.0); Platelet Count 163 K/mm3 (142-424); Red Blood Count 4.59 M/mm3 (4.60-6.20); Red Cell Distribution Width 18.4 % (11.5-17.5); White Blood Count 6.6 K/mm3 (4.8-10.8)
[2021-02-04 14:14] LABS: Anion Gap 17.1 mEq/L (5-15); Blood Urea Nitrogen 42 mg/dl (9-20); Calcium 8.9 mg/dl (8.4-10.2); Carbon Dioxide 26 mmol/L (22.0-30.0); Chloride 112 mmol/L (98-107); Estimated Glomerular Filt Rate 50 ml/min (>60); GFR (African American) 60 ML/MIN (>60); Glucose 169 mg/dl (74-100); Potassium 5.1 mmoL/L (3.5-5.1)
[2021-02-04 14:45] LABS: Sodium 150 mmol/L (136-145)
[2021-02-04 15:31] LABS: Prothrombin Time 42.6 seconds (10.1-12.5)
== END ==
PROVIDERS: Visit Provider Nurse Practitioner Family
DX: D64.9 Anemia, unspecified (principal); Z51.81 Encounter for therapeutic drug level monitoring; Z79.01 Long term (current) use of anticoagulants
CPT/HCPCS: 36415; 80048; 85025; 85610